=== PATIENT | male | born 1955 | race Caucasian/White ===

== ENCOUNTER 2017-03-10 13:58 | Emergency (ER) | payer OTHER ==
[~2017-03-10] VITALS: Ht 182.9 cm; Wt 104.3 kg
[~2017-03-10 13:58] MED LIST: ACCUPRIL PO; AMBIEN 10 MG TA10 MG PO; ATACAND HCT 161 EACH PO; ATIVAN0.5 MG PO; BACTRIM DS TAB1 EACH PO; CELEXA40 MG PO; CLONAZEPAM 1 MG1 M1 PO; CLONAZEPAM2 MG PO; CLONIDINE0.1 PO; FLEXERIL PO; GLUCOPHAGE500 MG PO; IBUPROFEN 600600 M1 PO; LISINOPRIL2.5 MG PO; MEDROLDOSEPACK PO; NAPROSYN500 MG PO; NEURONTIN 300300 M1 PO; NEXIUM20 MG PO; NEXIUM40 MG PO; NORCO 5-325 TA1 EACH PO; NORFLEX100 MG PO; NORVASC10 MG PO; OXECTA5 MG PO; OXYCODONE HCL 55 MG PO; OXYCODONE HCL10 MG PO; OXYCODONE HCL5 M1 PO; OXYCONTIN10 M1; PERCOCET 10-321 EACH PO; PERCOCET 5-3251 EACH PO; PREDNISONE 20 M20 MG PO; PRINIVIL20 MG PO; PROAIR HFA8.5 GM INH; TRAMADOL 50 MG50 MG PO; VIMOVO 375-201 EACH; ZOFRAN ODT4 MG PO
[2017-03-10 13:59] VITALS: BP 182/129
[2017-03-10] MEDS ORDERED: XANAX 0.5 MG0.5 MG PO (14:30)
== END 2017-03-10 14:50 | disposition left against medical advice (07) ==
LOC: ER 13:58
DX: G89.29 Other chronic pain (principal); M54.5 Low back pain; F32.9 Major depressive disorder, single episode, unspecified; F41.9 Anxiety disorder, unspecified; F17.210 Nicotine dependence, cigarettes, uncomplicated; F10.99 Alcohol use, unspecified with unspecified alcohol-induced disorder; Z86.19 Personal history of other infectious and parasitic diseases

== ENCOUNTER 2017-12-28 22:59 | Emergency (ER) | payer OTHER ==
[~2017-12-28] VITALS: Ht 182.9 cm; Wt 90.7 kg
[~2017-12-28 22:59] MED LIST changes: +XANAX 0.5 MG0.5 MG PO
[2017-12-28 23:32] LABS: URINE BILIRUBIN NEGATIVE (Negative); URINE BLOOD NEGATIVE (Negative); URINE CLARITY CLEAR; URINE COLOR YELLOW; URINE GLUCOSE-RANDOM* NEGATIVE (Negative); URINE KETONES NEGATIVE (Negative); URINE LEUKOCYTES-REFLEX NEGATIVE (Negative); URINE NITRITE-REFLEX NEGATIVE (Negative); URINE PROTEIN (DIPSTICK) 1+ (Negative); URINE UROBILINOGEN 0.2 E.U./dl (0.2-1.0)
[2017-12-28 23:42] LABS: BACTERIA-REFLEX None Seen /HPF (None Seen); CASTS None Seen /LPF (None Seen); CRYSTALS None Seen /LPF (None Seen); MUCUS None Seen strn/LPF (None Seen); SQUAMOUS 0-3 Few /LPF (0-3); URINE RBC None Seen /HPF (0-2); URINE WBC-REFLEX None Seen /HPF (0-5)
[2017-12-29 00:24] VITALS: BP 158/98
== END 2017-12-29 00:43 | disposition left against medical advice (07) ==
LOC: ER 22:59
PROVIDERS: Emergency Medicine
DX: R07.89 Other chest pain (principal); R10.13 Epigastric pain; F32.9 Major depressive disorder, single episode, unspecified; F41.9 Anxiety disorder, unspecified; M54.9 Dorsalgia, unspecified; G89.29 Other chronic pain; F17.210 Nicotine dependence, cigarettes, uncomplicated

== ENCOUNTER 2018-08-31 23:33 | Emergency (ER) | payer OTHER ==
[~2018-08-31] VITALS: Ht 182.9 cm; Wt 88.5 kg
[2018-08-31 23:40] VITALS: BP 166/103
== END 2018-09-01 02:40 | disposition home or self-care (01) ==
LOC: ER 23:33
DX: R07.81 Pleurodynia (principal); F41.9 Anxiety disorder, unspecified; G89.29 Other chronic pain; M54.9 Dorsalgia, unspecified; M48.00 Spinal stenosis, site unspecified

== ENCOUNTER 2020-10-30 17:28 | Emergency (ER) | payer OTHER, MEDICAID ==
[~2020-10-30] VITALS: Ht 180.3 cm; Wt 86.2 kg
[2020-10-30] MEDS ORDERED: BACLOFEN 10MG T10 MG PO (18:16)
[2020-10-30] MEDS ORDERED: ROPINIROLE HCL0.5 MG PO (18:16)
[2020-10-30] MEDS ORDERED: NORCO 10-325 T1 EACH PO (18:23)
[2020-10-30 18:29] VITALS: BP 188/104
== END 2020-10-30 18:49 | disposition home or self-care (01) ==
LOC: ER 17:28
DX: M54.16 Radiculopathy, lumbar region (principal); Z79.899 Other long term (current) drug therapy; Z87.891 Personal history of nicotine dependence; Z88.8 Allergy status to other drugs, medicaments and biological substances

== ENCOUNTER 2020-12-17 18:49 | Emergency (ER) | payer OTHER, MEDICAID ==
[~2020-12-17] VITALS: Ht 180.3 cm; Wt 86.2 kg
--- NOTE | ~2020-12-17 | EMS ---
[facility] [address] [place] [address] EMS Patient Care Report Name: JENA MO Room #: REG DEMARCUS Bergman#: [id number] Admission: 12/17/20 Attend Phys: Discharge: Date of : 59 Report #: [id number] THIS REPORT FOR: //name// Report Transmitted: 12/17/2020 20:16 EMS Care Summary [facility] MED-ACT Incident [id number] @ 12/17/2020 18:19 Incident Location [address] [place] [address] Patient JENA MO Male, 65 Years 1955 Patient Address [address] [place] [address] Patient History Chronic Obstructive Pulmonary Disease (COPD),Hypertension (HTN),Kidney/Renal Failure,Stroke/CVA,Substance Abuse,Parkinson's Disease,End Stage Renal Disease (ESRD),Emphysema,Hepatitis C (Without Hepatic Coma),Anxiety Disorder (Panic Attacks),Depression,Anxiety,Neuropathy,Alcohol Abuse,Chronic Pain,Dialysis,Back Pain (Chronic), Patient Allergies Haldol, Patient Medications Gabapentin, Levetiracetam, Lexapro, Ropinirole, Creon, Metoprolol, Ativan, Neurontin, Alprazolam, Lidocaine, Lisinopril, Trazodone, Buspirone, Amlodipine, Oxycodone, Clonidine, Chief Complaint Malaise Disposition Transported No Lights/[place] Dispatch Reason Sick Person [facility] [address] [place] [address] EMS Patient Care Report Name: JENA MO Room #: REG M.R.#: [id number] Admission: 12/17/20 Attend Phys: Discharge: Date of : 59 Report #: [id number] Transported To [facility] Narrative [id number] dispatched C3 to [facility] for sick person. Upon arrival pt found standing in room, responsive, breathing nonlabored. Pt states that he missed dialysis today and is feeling "uneasy on my feet" and is just not feeling well. Pt states that he always feels this way when he misses dialysis. Pt states that he last went to dialysis 6 days prior. Pt denies drugs or alcohol. Pt denies any other complaints. Pt states that he forgot to take his BP medication this morning but he took it right before calling 911. Pt is able to stand and walk to the cot without assistance. Pt vitals and condition monitored enroute. Pt care transferred room 6 in ER. Initial Vitals @18:34P: 65,R: 16,BP: 214/111,Pain: 0/10,Temp: 97.9F,SpO2: 98, @18:43P: 61,R: 16,BP: 170/89,GCS: 15,SpO2: 96,Revised Trauma: 12, @18:36P: 66,R: 16,BP: 202/109,Pain: 0/10,GCS: 15,SpO2: 100,Revised Trauma: 12, Assessments @18:31MENTAL:Person Oriented,Time Oriented,Place Oriented,Event Oriented,SKIN:HEENT:Head/Face: No Abnormalities,LUNG SOUNDS:ABDOMEN:PELVIS//GI:EXTREMITIES:Left Arm: No Abnormalities,Right Arm: No Abnormalities,Left Leg: No Abnormalities,Right Leg: No Abnormalities,PULSE:NEURO:No Abnormalities, Impression Malaise Procedures @PTA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 PatientResponse: Unchanged 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,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 Patient,Response: Unchanged 18:18,Call Received 18:18,Psap Call 18:19,Dispatched 18:19,En Route 18:27,On Scene 18:30,At Patient [facility] [address] [place] [address] EMS Patient Care Report Name: BRITTNEYJacquelineJENA HARPER Room #: REG [facility]#: [id number] Admission: 12/17/20 Attend Phys: Discharge: Date of : 59 Report #: [id number] 18:34,BP: 214/111 M,PULSE: 65,RR: 16 R,SPO2: 98 Ox,ETCO2: ,BG: ,PAIN: 0,GCS: , 18:34,Depart Scene 18:36,BP: 202/109 M,PULSE: 66,RR: 16 R,SPO2: 100 Ox,ETCO2: ,BG: ,PAIN: 0,GCS: 15, 18:43,BP: 170/89 M,PULSE: 61,RR: 16 R,SPO2: 96 Ox,ETCO2: ,BG: ,PAIN: ,GCS: 15, 18:45,At Destination 18:55,Call Closed Disclaimer v1.1 Copyright 2020 [employer] This EMS Care Summary contains data elements from the applicable legal record (which may be displayed differently). It is designed to provide pertinent information for the following purposes: continuity of care, clinical quality, and state data reporting. The complete legal record is available to ED staff and administrators of the receiving hospital in [employer]'s Patient Tracker. All data is provided "as is."
[~2020-12-17 18:49] MED LIST changes: +BACLOFEN 10MG T10 MG PO; +NORCO 10-325 T1 EACH PO; +ROPINIROLE HCL0.5 MG PO
[2020-12-17 20:08] LABS: ABSOLUTE NEUTROPHILS 4.1 thou/uL (1.4-8.2); BASOPHILS 0.8 % (0.0-2.0); EOSINOPHILS 3.8 % (0.0-3.0); HEMATOCRIT 30.9 % (42.0-52.0); HEMOGLOBIN 10.6 gm/dL (14.0-18.0); LYMPHOCYTES 16.1 % (24.0-44.0); MCH 34.9 pg (26.0-34.0); MCHC 34.4 g/dL (28.0-37.0); MCV 101.5 fL (80.0-100.0); MONOCYTES 5.5 % (1.0-8.0); PLATELET COUNT 164 thou/uL (150-400); POLYS 73.8 % (36.0-66.0); RBC 3.04 mil/uL (4.50-6.00); RDW 16.6 % (10.5-14.5); WBC 5.6 thou/uL (4.0-11.0)
[2020-12-17 20:17] LABS: CALCIUM 8.1 mg/dL (8.5-10.1); CREATININE 8.4 mg/dL (0.7-1.3)
[2020-12-17 20:22] LABS: POTASSIUM 6.1 mmol/L (3.5-5.1)
[2020-12-17 21:54] VITALS: BP 146/80
--- NOTE | 2020-12-18 06:59 | EKG ---
[place] [address] [facility] [employer] [place] [address] ELECTROCARDIOGRAM REPORT Name: JENA MO Room #: [facility]P [facility] [id number] Admission: 12/17/20 Attend Phys: Discharge: 12/17/20 Date of : 59 Report #: [id number] [facility] ED Test Date: 2020-12-17 Test Time: 20:29:53 Pat Name: JENA MO Department: Room: Gender: M Policy Checker: VIDHI : 1955 Requested By: Mita Jerry Order Number: [id number] MD: Graeme Lawrence Measurements Intervals [place] Rate: 51 P: 39 NJ: 213 QRS: 39 QRSD: 109 T: 65 QT: 496 QTc: 457 Interpretive Statements Sinus rhythm Borderline prolonged NJ interval Minimal ST elevation, inferior leads Baseline wander in lead(s) V4 Compared to ECG 10/16/2016 01:44:57 ST (T wave) deviation now present Poor R-wave progression no longer present Electronically Signed On 12-18-2020 6:59:26 CDT by Graeme Lawrence [email or web address] <ELECTRONICALLY SIGNED> By: Graeme Lawrence MD, FAC 12/18/20 0659 28 28 Graeme Lawrence MD, [facility] /EPI
--- NOTE | 2020-12-18 17:12 | EKG ---
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 Primary Care: VIDHI : 1955 Requested By: Mita Jerry Order Number: [id number] MD: Roman Interiano Measurements Intervals [place] Rate: 140 P: 56 DE: 127 QRS: 33 QRSD: 92 T: -2 QT: 294 QTc: 449 Interpretive Statements Sinus tachycardia Nonspecific T wave abnormality Compared to ECG 12/17/2020 20:29:53 Heart rate has increased Electronically Signed On 12-18-2020 17:11:57 CDT by Roman Interiano [email or web address] <ELECTRONICALLY SIGNED> By: Roman Interiano MD, [facility] 12/18/201710 34 Roman Interiano MD, FACC /EPI
== END 2020-12-17 22:03 | disposition home or self-care (01) ==
LOC: ER 18:49
PROVIDERS: Emergency Medicine
DX: E87.5 Hyperkalemia (principal); N18.6 End stage renal disease; Z99.2 Dependence on renal dialysis; Z79.899 Other long term (current) drug therapy; Z87.891 Personal history of nicotine dependence; Z88.8 Allergy status to other drugs, medicaments and biological substances

== ENCOUNTER 2021-03-16 00:36 | Emergency (ER) | payer OTHER, MEDICAID ==
[~2021-03-16] VITALS: Ht 180.3 cm; Wt 86.2 kg
--- NOTE | ~2021-03-16 | EMS ---
[facility] [address] [place] [address] EMS Patient Care Report Name: JENA MO Room #: REG DEMARCUS Bergman#: [id number] Admission: 03/16/21 Attend Phys: Discharge: Date of : 59 Report #: [id number] THIS REPORT FOR: //name// Report Transmitted: 03/16/2021 00:43 EMS Care Summary [facility] MED-ACT Incident [id number] @ 03/16/2021 00:11 Incident Location [address] [place] [address] Patient JENA MO Male, 65 Years 1955 Patient Address [address] [place] [address] Patient History Chronic Obstructive Pulmonary Disease (COPD),Hypertension (HTN),Kidney/Renal Failure,Stroke/CVA,Substance Abuse,Parkinson's Disease,End Stage Renal Disease (ESRD),Emphysema,Hepatitis C (Without Hepatic Coma),Anxiety Disorder (Panic Attacks),Depression,Anxiety,Rheumatic Aortic Stenosis,Neuropathy,Alcohol Abuse,Chronic Pain,Dialysis,Back Pain (Chronic), Patient Allergies Haldol, Patient Medications Allopurinol, Trazodone, Amlodipine, Alprazolam, Buspirone, Clonidine, Gabapentin, Oxycodone, Lexapro, Ropinirole, Neurontin, Levetiracetam, Lidocaine, Creon, Ativan, Metoprolol, Lisinopril, Chief Complaint my foot hurts Disposition Transported No Lights/[place] Dispatch Reason Sick Person Transported To [facility] [address] [place] [address] EMS Patient Care Report Name: JENA MO Room #: REG [facility] [id number] Admission: 03/16/21 Attend Phys: Discharge: Date of : 59 Report #: [id number] [facility] Narrative [id number] dispatched nonemergent to this location for a 65yo male with foot pain. Pt was found seated in a wheel chair in no obvious distress with security at his side. Pt stated he thought this was an ED and had a friend drop him off. Pt stated he scraped his foot on the concrete and its now infected. Pt was able to walk to the unit and climb inside with no assistance. Pt then sat on the cot and was secured per department policy. Pt denied any chest pain, shortness of blood, N/D/V, or any drainage from his infected wound. 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 Patient, 00:09,Call Received 00:09,Psap Call 00:11,Dispatched 00:12,En Route 00:19,On Scene 00:19,At Patient 00:25,Depart Scene 00:25,BP: 192/102 M,PULSE: 85,RR: 16 R,SPO2: 95 Ox,ETCO2: ,BG: ,PAIN: 4,GCS: 15, 00:31,BP: 166/96 M,PULSE: 83,RR: 16 R,SPO2: 97 Ox,ETCO2: ,BG: ,PAIN: ,GCS: 15, 00:33,At Destination 05:56,Call Closed Disclaimer v1.1 Copyright 2020 [employer] [facility] [address] [place] [address] EMS Patient Care Report Name: JENA MO Room #: REG [facility] [id number] Admission: 03/16/21 Attend Phys: Discharge: Date of : 59 Report #: [id number] This EMS Care Summary contains data elements from the applicable legal record (which may be displayed differently). It is designed to provide pertinent information for the following purposes: continuity of care, clinical quality, and state data reporting. The complete legal record is available to ED staff and administrators of the receiving hospital in [employer]'s Patient Tracker. All data is provided "as is."
[2021-03-16 00:38] VITALS: BP 177/92
[2021-03-16 01:30] LABS: ABSOLUTE NEUTROPHILS 3.9 thou/uL (1.4-8.2); BASOPHILS 1.3 % (0.0-2.0); EOSINOPHILS 4.1 % (0.0-3.0); HEMATOCRIT 22.1 % (42.0-52.0); HEMOGLOBIN 7.6 gm/dL (14.0-18.0); LYMPHOCYTES 16.2 % (24.0-44.0); MCH 34.5 pg (26.0-34.0); MCHC 34.3 g/dL (28.0-37.0); MCV 100.4 fL (80.0-100.0); MONOCYTES 9.3 % (1.0-8.0); PLATELET COUNT 255 thou/uL (150-400); POLYS 69.1 % (36.0-66.0); RDW 14.9 % (10.5-14.5); WBC 5.6 thou/uL (4.0-11.0)
[2021-03-16 01:33] LABS: CALCIUM 8.9 mg/dL (8.5-10.1); POTASSIUM 4.4 mmol/L (3.5-5.1)
[2021-03-16 01:39] LABS: ALBUMIN 2.7 g/dL (3.4-5.0); TOTAL BILIRUBIN 0.4 mg/dL (0.2-1.0)
[2021-03-16] MEDS ORDERED: MORPHINE SULFAT15 M3 PO (01:56)
== END 2021-03-16 02:13 | disposition home or self-care (01) ==
LOC: ER 00:36
PROVIDERS: Emergency Medicine
DX: L03.115 Cellulitis of right lower limb (principal); N18.6 End stage renal disease; G89.29 Other chronic pain; F17.210 Nicotine dependence, cigarettes, uncomplicated; Z88.8 Allergy status to other drugs, medicaments and biological substances; Z99.2 Dependence on renal dialysis

== ENCOUNTER 2021-05-12 18:38 | Emergency (ER) | payer OTHER, MEDICAID ==
[~2021-05-12] VITALS: Ht 180.3 cm; Wt 81.7 kg
[~2021-05-12 18:38] MED LIST changes: +MORPHINE SULFAT15 M3 PO
[2021-05-12] MEDS ORDERED: TOPROL XL100 MG PO (19:33)
[2021-05-12 22:27] VITALS: BP 143/80
== END 2021-05-12 22:42 | disposition home or self-care (01) ==
LOC: ER 18:38
DX: G89.29 Other chronic pain (principal); M54.5 Low back pain; N18.6 End stage renal disease; F32.9 Major depressive disorder, single episode, unspecified; F41.9 Anxiety disorder, unspecified; Z79.899 Other long term (current) drug therapy; Z87.891 Personal history of nicotine dependence; Z88.8 Allergy status to other drugs, medicaments and biological substances

== ENCOUNTER 2021-09-04 16:40 | Emergency (ER) | payer OTHER ==
[~2021-09-04] VITALS: Ht 180.3 cm; Wt 86.2 kg
--- NOTE | ~2021-09-04 | EMS ---
[address] [address] EMS Patient Care Report Name: JENA MO Room #: DEP DEMARCUS Bergman#: [id number] Admission: 09/04/21 Attend Phys: Discharge: 09/04/21 Date of : 59 Report #: [id number] THIS REPORT FOR: //name// Report Transmitted: 09/05/2021 13:11 EMS Care Summary [place], [place]/[facility] Incident [id number] @ 09/04/2021 15:57 Incident Location [address] [place] [address] 203 Patient JENA MO Male, 66 Years 1955 Patient Address [id number] [place] [address] Patient History Chronic Obstructive Pulmonary Disease (COPD),Hypertension (HTN),Kidney/Renal Failure,Seizures,Stroke/CVA,Parkinson's Disease,Neuropathy,Dialysis,Back Pain (Chronic), Patient Allergies No known allergies,Haldol, Patient Medications Albuterol, Aspirin, Clonidine, Alprazolam, Amlodipine, Atorvastatin, Gabapentin, Metoprolol, Baclofen, Lisinopril, Buspirone, Chief Complaint left lower quadrant abdominal pain Disposition Transported No Lights/[place] Dispatch Reason Abdominal Pain/Problems Transported To [address] [address] EMS Patient Care Report Name: JENA MO Room #: DEP ER Hyun#: [id number] Admission: 09/04/21 Attend Phys: Discharge: 09/04/21 Date of : 59 Report #: [id number] called on male pt with abdominal pain.upon arrival pt found a and o times 3 and ambulatory,walking towards ambulance with fire crew..pt states he has had llq abdomnial pain for the last three days.he can rub it and it feels better .he denies any trauma to area.pt secured to stretcher.pt states he has also been feeling dizzy and like he was going to pass out .he denied any loc,cp or sob.pt placed on monitor and pulse ox and 12 lead done.iv attempted times 1 without success.bs checked and was 251.pt transported to [facility] er without change in condition.report and care given to rn in triage area and pt moved to wheelchair and left with rn at triage. Initial Vitals @16:21P: 137,CO: 0,SpO2: 97, @16:16P: 43,SpO2: 88, @16:25P: 180,SpO2: 97, @16:19P: 182,CO: 2,SpO2: 97, @16:12P: 45,SpO2: 93, @16:21P: 105,SpO2: 98, @16:10P: 78,R: 16,BP: 122/89,Pain: 4/10,GCS: 15,Glucose: 251,SpO2: 92,Revised Trauma: 12,DE Suspected: false Assessments @16:10MENTAL:No Abnormalities,SKIN:No Abnormalities,HEENT:Head/Face: No Abnormalities,Eyes: No Abnormalities,Neck/Airway: No Abnormalities,LUNG SOUNDS:General: No Abnormalities,Left Upper: No Abnormalities,Right Upper: No Abnormalities,Left Lower: No Abnormalities,Right Lower: No Abnormalities,ABDOMEN:General: No Abnormalities,Left Upper: No Abnormalities,Right Upper: No Abnormalities,Left Lower: No Abnormalities,Right Lower: No Abnormalities,PELVIS//GI:No Abnormalities,EXTREMITIES:Left Arm: No Abnormalities,Right Arm: No Abnormalities,Left Leg: No Abnormalities,Right Leg: No Abnormalities,PULSE:NEURO:No Abnormalities, Impression Abdominal Pain Procedures @16:10 ALS Assessment Response: UnchangedSucceeded @16:21 12-Lead ECG Response: UnchangedSucceeded @16:18 3-Lead ECG Response: UnchangedSucceeded @16:30 General Comments Response: Unchanged @16:23 IV Therapy - Saline Lock 0cc (20 ga) Site: Forearm-Left Response: UnchangedFailed Timeline 15:53,Call Received 15:53,Dispatch Notified [address] [address] EMS Patient Care Report Name: JENA MO Room #: [facility] Madalyn#: [id number] Admission: 09/04/21 Attend Phys: Discharge: 09/04/21 Date of : 59 Report #: [id number] 15:57,Dispatched 15:57,En Route 16:09,On Scene 16:10,At Patient 16:10,ALS Assessment,Response: UnchangedSucceeded, 16:10,BP: 122/89 M,PULSE: 78,RR: 16 R,SPO2: 92 Ox,ETCO2: ,B,PAIN: 4,GCS: 15, 16:12,BP: / M,PULSE: 45,RR: R,SPO2: 93 Ox,ETCO2: ,BG: ,PAIN: ,GCS: , 16:16,BP: / M,PULSE: 43,RR: R,SPO2: 88 Ox,ETCO2: ,BG: ,PAIN: ,GCS: , 16:18,3-Lead ECG,Response: UnchangedSucceeded, 16:19,BP: / M,PULSE: 182,RR: R,SPO2: 97 Ox,ETCO2: ,BG: ,PAIN: ,GCS: , 16:21,BP: / M,PULSE: 137,RR: R,SPO2: 97 Ox,ETCO2: ,BG: ,PAIN: ,GCS: , 16:21,12-Lead ECG,Response: UnchangedSucceeded, 16:21,BP: / M,PULSE: 105,RR: R,SPO2: 98 Ox,ETCO2: ,BG: ,PAIN: ,GCS: , 16:23,IV Therapy - Saline Lock 0cc 20 ga Site: Forearm-Left,Response: UnchangedFailed, 16:25,BP: / M,PULSE: 180,RR: R,SPO2: 97 Ox,ETCO2: ,BG: ,PAIN: ,GCS: , 16:30,General Comments,Response: Unchanged 16:31,Depart Scene 16:35,At Destination 16:57,Call Closed Disclaimer v1.1 Copyright 2020 [employer] This EMS Care Summary contains data elements from the applicable legal record (which may be displayed differently). It is designed to provide pertinent information for the following purposes: continuity of care, clinical quality, and state data reporting. The complete legal record is available to ED staff and administrators of the receiving hospital in [employer]'s Patient Tracker. All data is provided "as is."
--- NOTE | ~2021-09-04 | EMS ---
[address] [address] EMS Patient Care Report Name: JENA MO Room #: DEP DEMARCUS Bergman#: [id number] Admission: 09/04/21 Attend Phys: Discharge: 09/04/21 Date of : 59 Report #: [id number] THIS REPORT FOR: //name// Report Transmitted: 09/05/2021 09:49 EMS Care Summary [place], [place]/[facility] Incident [id number] @ 09/04/2021 15:57 Incident Location [address] [place] [address] 203 Patient JENA MO Male, 66 Years 1955 Patient Address [address] [place] [address] Patient History Chronic Obstructive Pulmonary Disease (COPD),Hypertension (HTN),Kidney/Renal Failure,Seizures,Stroke/CVA,Parkinson's Disease,Neuropathy,Dialysis,Back Pain (Chronic), Patient Allergies No known allergies,Haldol, Patient Medications Albuterol, Aspirin, Clonidine, Alprazolam, Amlodipine, Atorvastatin, Gabapentin, Metoprolol, Baclofen, Lisinopril, Buspirone, Chief Complaint left lower quadrant abdominal pain Disposition Transported No Lights/[place] Dispatch Reason Abdominal Pain/Problems Transported To [address] [address] EMS Patient Care Report Name: JENA MO Room #: DEP ER Hyun#: [id number] Admission: 09/04/21 Attend Phys: Discharge: 09/04/21 Date of : 59 Report #: [id number] called on male pt with abdominal pain.upon arrival pt found a and o times 3 and ambulatory,walking towards ambulance with fire crew..pt states he has had llq abdomnial pain for the last three days.he can rub it and it feels better .he denies any trauma to area.pt secured to stretcher.pt states he has also been feeling dizzy and like he was going to pass out .he denied any loc,cp or sob.pt placed on monitor and pulse ox and 12 lead done.iv attempted times 1 without success.bs checked and was 251.pt transported to [facility] er without change in condition.report and care given to rn in triage area and pt moved to wheelchair and left with rn at triage. Initial Vitals @16:21P: 137,CO: 0,SpO2: 97, @16:16P: 43,SpO2: 88, @16:25P: 180,SpO2: 97, @16:19P: 182,CO: 2,SpO2: 97, @16:12P: 45,SpO2: 93, @16:21P: 105,SpO2: 98, @16:10P: 78,R: 16,BP: 122/89,Pain: 4/10,GCS: 15,Glucose: 251,SpO2: 92,Revised Trauma: 12,PR Suspected: false Assessments @16:10MENTAL:No Abnormalities,SKIN:No Abnormalities,HEENT:Head/Face: No Abnormalities,Eyes: No Abnormalities,Neck/Airway: No Abnormalities,LUNG SOUNDS:General: No Abnormalities,Left Upper: No Abnormalities,Right Upper: No Abnormalities,Left Lower: No Abnormalities,Right Lower: No Abnormalities,ABDOMEN:General: No Abnormalities,Left Upper: No Abnormalities,Right Upper: No Abnormalities,Left Lower: No Abnormalities,Right Lower: No Abnormalities,PELVIS//GI:No Abnormalities,EXTREMITIES:Left Arm: No Abnormalities,Right Arm: No Abnormalities,Left Leg: No Abnormalities,Right Leg: No Abnormalities,PULSE:NEURO:No Abnormalities, Impression Abdominal Pain Procedures @16:10 ALS Assessment Response: UnchangedSucceeded @16:21 12-Lead ECG Response: UnchangedSucceeded @16:18 3-Lead ECG Response: UnchangedSucceeded @16:30 General Comments Response: Unchanged @16:23 IV Therapy - Saline Lock 0cc (20 ga) Site: Forearm-Left Response: UnchangedFailed Timeline 15:53,Call Received 15:53,Dispatch Notified [address] [address] EMS Patient Care Report Name: JENA MO Room #: [facility] Madalyn#: [id number] Admission: 09/04/21 Attend Phys: Discharge: 09/04/21 Date of : 59 Report #: [id number] 15:57,Dispatched 15:57,En Route 16:09,On Scene 16:10,At Patient 16:10,ALS Assessment,Response: UnchangedSucceeded, 16:10,BP: 122/89 M,PULSE: 78,RR: 16 R,SPO2: 92 Ox,ETCO2: ,B,PAIN: 4,GCS: 15, 16:12,BP: / M,PULSE: 45,RR: R,SPO2: 93 Ox,ETCO2: ,BG: ,PAIN: ,GCS: , 16:16,BP: / M,PULSE: 43,RR: R,SPO2: 88 Ox,ETCO2: ,BG: ,PAIN: ,GCS: , 16:18,3-Lead ECG,Response: UnchangedSucceeded, 16:19,BP: / M,PULSE: 182,RR: R,SPO2: 97 Ox,ETCO2: ,BG: ,PAIN: ,GCS: , 16:21,BP: / M,PULSE: 137,RR: R,SPO2: 97 Ox,ETCO2: ,BG: ,PAIN: ,GCS: , 16:21,12-Lead ECG,Response: UnchangedSucceeded, 16:21,BP: / M,PULSE: 105,RR: R,SPO2: 98 Ox,ETCO2: ,BG: ,PAIN: ,GCS: , 16:23,IV Therapy - Saline Lock 0cc 20 ga Site: Forearm-Left,Response: UnchangedFailed, 16:25,BP: / M,PULSE: 180,RR: R,SPO2: 97 Ox,ETCO2: ,BG: ,PAIN: ,GCS: , 16:30,General Comments,Response: Unchanged 16:31,Depart Scene 16:35,At Destination 16:57,Call Closed Disclaimer v1.1 Copyright 2020 [employer] This EMS Care Summary contains data elements from the applicable legal record (which may be displayed differently). It is designed to provide pertinent information for the following purposes: continuity of care, clinical quality, and state data reporting. The complete legal record is available to ED staff and administrators of the receiving hospital in [employer]'s Patient Tracker. All data is provided "as is."
[~2021-09-04 16:40] MED LIST changes: +TOPROL XL100 MG PO
[2021-09-04 16:46] VITALS: BP 96/55
[2021-09-04 17:38] LABS: ABSOLUTE NEUTROPHILS 7.9 thou/uL (1.4-8.2); BASOPHILS 0.8 % (0.0-2.0); EOSINOPHILS 6.6 % (0.0-3.0); HEMATOCRIT 36.7 % (42.0-52.0); HEMOGLOBIN 12.2 gm/dL (14.0-18.0); LYMPHOCYTES 12.8 % (24.0-44.0); MCH 31.8 pg (26.0-34.0); MCHC 33.2 g/dL (28.0-37.0); MCV 95.9 fL (80.0-100.0); MONOCYTES 5.9 % (1.0-8.0); PLATELET COUNT 249 thou/uL (150-400); POLYS 73.9 % (36.0-66.0); RBC 3.83 mil/uL (4.50-6.00); RDW 14.8 % (10.5-14.5); WBC 10.7 thou/uL (4.0-11.0)
[2021-09-04 17:47] LABS: CALCIUM 9.1 mg/dL (8.5-10.1); CREATININE 7.3 mg/dL (0.7-1.3); POTASSIUM 4.9 mmol/L (3.5-5.1)
[2021-09-04 17:58] LABS: ALBUMIN 4.1 g/dL (3.4-5.0); TOTAL BILIRUBIN 0.3 mg/dL (0.2-1.0); TOTAL PROTEIN 8.2 g/dL (6.4-8.2)
[2021-09-04] MEDS ORDERED: AUGMENTIN 500-1 EACH PO (18:43)
--- NOTE | 2021-09-06 11:07 | EKG ---
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 : 1955 Requested By: Miracle Mae Order Number: [id number] MD: Roman Interiano Measurements Intervals [place] Rate: 92 P: 48 NM: 167 QRS: 44 QRSD: 99 T: 68 QT: 380 QTc: 471 Interpretive Statements Sinus rhythm Borderline ST elevation, anterolateral leads Compared to ECG 12/17/2020 20:35:51 ST (T wave) deviation now present Sinus tachycardia no longer present Electronically Signed On 09-06-2021 11:06:37 BUS TROLLEY AND TAXI INSTRUCTOR by Roman Interiano [email or web address] <ELECTRONICALLY SIGNED> By: Roman Interiano MD, [facility] 09/06/21 1106 D: 12/1751 51 Roman Interiano MD, FACC /EPI
== END 2021-09-04 18:57 | disposition home or self-care (01) ==
LOC: ER 16:40
PROVIDERS: Nurse Practitioner Family
DX: K52.9 Noninfective gastroenteritis and colitis, unspecified (principal); R10.10 Upper abdominal pain, unspecified; B19.20 Unspecified viral hepatitis C without hepatic coma; F32.9 Major depressive disorder, single episode, unspecified; F41.9 Anxiety disorder, unspecified; K21.9 Gastro-esophageal reflux disease without esophagitis; N18.6 End stage renal disease; Z98.890 Other specified postprocedural states; Z79.51 Long term (current) use of inhaled steroids; Z79.899 Other long term (current) drug therapy; Z88.8 Allergy status to other drugs, medicaments and biological substances; Z87.891 Personal history of nicotine dependence

== ENCOUNTER 2021-09-05 18:10 | Emergency (ER) | payer OTHER ==
[~2021-09-05] VITALS: Ht 180.3 cm; Wt 86.2 kg
[~2021-09-05 18:10] MED LIST changes: +AUGMENTIN 500-1 EACH PO
[2021-09-06 02:18] LABS: ABSOLUTE NEUTROPHILS 5.1 thou/uL (1.4-8.2); EOSINOPHILS 6.9 % (0.0-3.0); HEMATOCRIT 33.5 % (42.0-52.0); LYMPHOCYTES 18.8 % (24.0-44.0); MCH 31.6 pg (26.0-34.0); MCHC 32.8 g/dL (28.0-37.0); MCV 96.3 fL (80.0-100.0); PLATELET COUNT 231 thou/uL (150-400); POLYS 68.3 % (36.0-66.0); RBC 3.48 mil/uL (4.50-6.00); RDW 14.9 % (10.5-14.5); WBC 7.5 thou/uL (4.0-11.0)
[2021-09-06 02:35] LABS: CALCIUM 8.4 mg/dL (8.5-10.1); POTASSIUM 4.8 mmol/L (3.5-5.1)
[2021-09-06 02:38] LABS: ALBUMIN 3.9 g/dL (3.4-5.0); TOTAL BILIRUBIN 0.3 mg/dL (0.2-1.0); TOTAL PROTEIN 7.6 g/dL (6.4-8.2)
[2021-09-06 04:18] VITALS: BP 158/89
== END 2021-09-06 03:50 | disposition home or self-care (01) ==
LOC: ER 18:10
PROVIDERS: Emergency Medicine
DX: R10.13 Epigastric pain (principal); B19.20 Unspecified viral hepatitis C without hepatic coma; F32.9 Major depressive disorder, single episode, unspecified; N18.6 End stage renal disease; Z98.890 Other specified postprocedural states; Z79.51 Long term (current) use of inhaled steroids; Z79.899 Other long term (current) drug therapy; Z79.891 Long term (current) use of opiate analgesic; Z88.8 Allergy status to other drugs, medicaments and biological substances; Z87.891 Personal history of nicotine dependence

== ENCOUNTER 2021-09-13 10:11 | Emergency (ER) | payer OTHER ==
[~2021-09-13] VITALS: Ht 180.3 cm; Wt 86.2 kg
--- NOTE | ~2021-09-13 | EMS ---
[address] [address] EMS Patient Care Report Name: JENA MO Room #: DEP DEMARCUS Bergman#: [id number] Admission: 09/13/21 Attend Phys: Discharge: 09/13/21 Date of : 59 Report #: [id number] THIS REPORT FOR: //name// Report Transmitted: 09/18/2021 09:29 EMS Care Summary [place], [place]/[facility] Incident [id number] @ 09/13/2021 09:29 Incident Location [address] Patient JENA MO Male, 66 Years 1955 Patient Address [id number] [place] [address] [address] [place] [address] Patient History Chronic Obstructive Pulmonary Disease (COPD),Hypertension (HTN),Kidney/Renal Failure,Seizures,Stroke/CVA,Parkinson's Disease,Neuropathy,Dialysis,Back Pain (Chronic), Patient Allergies No known allergies,Haldol, Patient Medications Metoprolol, Alprazolam, Lisinopril, Atorvastatin, Gabapentin, Aspirin, Clonidine, Amlodipine, Buspirone, Baclofen, Albuterol, Chief Complaint FALL Disposition Transported No Lights/[place] Dispatch Reason Falls Transported To [address] [address] EMS Patient Care Report Name: JENA MO Room #: DEP ER Hyun#: [id number] Admission: 09/13/21 Attend Phys: Discharge: 09/13/21 Date of : 59 Report #: [id number] M43 WAS DISPATCHED TO A CARE HOME ON A FALL. ON ARRIVAL PT IS FOUND SITTING IN AN ARMCHAIR IN HIS ROOM. PT IS ALERT AND ORIENTED GCS OF 15 AND TELLS EMS THAT HE LOST HIS BALANCE AND FELL HURTING HIS ELBOW. PT HAS A 1 INCH LACERATION TO HIS LEFT ELBOW. EMS BANDAGES THE ELBOW WHICH STOPS THE BLEEDING. PT REQUESTS TRANSPORT TO [facility] FOR EVALUATION AND TREATMENT. PT S ABLE TO STAND AND WALK TO [facility] WHERE HE REMAINS UNTIL STAND AND SIT IN WHEELCHAIR IN ER. VITALS MONITORED EN ROUTE WITH NO CHANGES IN PT CONDITION. Initial Vitals @10:05P: 87,BP: 156/83, @09:56P: 78,R: 18,BP: 158/84,Pain: 6/10,GCS: 15,SpO2: 98,Revised Trauma: 12, Assessments @09:54MENTAL:Time Oriented,Event Oriented,Person Oriented,Place Oriented,SKIN:HEENT:Head/Face: No Abnormalities,Neck/Airway: No Abnormalities,LUNG SOUNDS:General: No Abnormalities,ABDOMEN:General: No Abnormalities,PELVIS//GI:No Abnormalities,EXTREMITIES:Left Arm: Other,Right Arm: No Abnormalities,Left Leg: No Abnormalities,Right Leg: No Abnormalities,PULSE:NEURO:No Abnormalities, Impression Injury of Elbow Procedures @09:54 ALS Assessment Response: UnchangedSucceeded Timeline 09:21,Call Received :,Dispatch Notified 09:29,Dispatched 09:30,En Route 09:50,On Scene 09:54,At Patient 09:54,ALS Assessment,Response: UnchangedSucceeded, 09:56,BP: 158/84 M,PULSE: 78,RR: 18 R,SPO2: 98 Ox,ETCO2: ,BG: ,PAIN: 6,GCS: 15, 10:02,Depart Scene 10:05,BP: 156/83 M,PULSE: 87,RR: R,SPO2: Ox,ETCO2: ,BG: ,PAIN: ,GCS: , 10:21,At Destination 10:26,Call Closed Disclaimer v1.1 Copyright 2021 [employer] This EMS Care Summary contains data elements from the applicable legal record (which may be displayed differently). It is designed to provide pertinent information for the following purposes: continuity of care, clinical quality, [address] [address] EMS Patient Care Report Name: JENA MO Room #: DEP DEMARCUS Bergman#: [id number] Admission: 09/13/21 Attend Phys: Discharge: 09/13/21 Date of : 59 Report #: [id number] and state data reporting. The complete legal record is available to ED staff and administrators of the receiving hospital in [employer]'s Patient Tracker. All data is provided "as is."
[~2021-09-13 10:11] MED LIST changes: -ACID CONTROLLER20 MG PO; -CEPHALEXIN500 MG PO; -COLACE100 MG PO; -HYDROCODON-ACE1 EAC7 PO; -LEVAQUIN 500 M500 MG PO; -METRONIDAZOLE500 M4 PO; -NEURONTIN 300M300 M2 PO
[2021-09-13 11:48] LABS: ABSOLUTE NEUTROPHILS 4.9 thou/uL (1.4-8.2); BASOPHILS 0.7 % (0.0-2.0); EOSINOPHILS 5.9 % (0.0-3.0); HEMATOCRIT 29.6 % (42.0-52.0); HEMOGLOBIN 9.8 gm/dL (14.0-18.0); LYMPHOCYTES 12.5 % (24.0-44.0); MCH 32.1 pg (26.0-34.0); MCV 97.2 fL (80.0-100.0); MONOCYTES 7.1 % (1.0-8.0); PLATELET COUNT 235 thou/uL (150-400); POLYS 73.8 % (36.0-66.0); RBC 3.04 mil/uL (4.50-6.00); RDW 14.7 % (10.5-14.5); WBC 6.7 thou/uL (4.0-11.0)
[2021-09-13 12:26] LABS: CALCIUM 8.5 mg/dL (8.5-10.1); CREATININE 8.9 mg/dL (0.7-1.3); POTASSIUM 5.3 mmol/L (3.5-5.1)
[2021-09-13 12:36] LABS: ALBUMIN 3.7 g/dL (3.4-5.0); TOTAL BILIRUBIN 0.2 mg/dL (0.2-1.0); TOTAL PROTEIN 7.5 g/dL (6.4-8.2)
--- NOTE | 2021-09-13 14:21 | EKG ---
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 : 1955 Requested By: Bubba Etienne Order Number: [id number] MD: Graeme Lawrence Measurements Intervals [place] Rate: 75 P: 48 DC: 188 QRS: 28 QRSD: 99 T: 62 QT: 401 QTc: 448 Interpretive Statements Sinus rhythm Baseline wander in lead(s) V4 Compared to ECG 09/04/2021 17:52:50 ST (T wave) deviation no longer present Electronically Signed On 09-13-2021 14:21:01 FLOOR TILING PROFESSIONAL by Graeme Lawrence [email or web address] <ELECTRONICALLY SIGNED> By: Graeme Lawrence MD, [facility] 09/13/21 1421 1043 1043 Graeme Lawrence MD, FACC /EPI
[2021-09-13] MEDS ORDERED: CEPHALEXIN500 MG PO (14:43)
[2021-09-13 14:50] VITALS: BP 153/90
== END 2021-09-13 14:50 | disposition home or self-care (01) ==
LOC: ER 10:11
PROVIDERS: Emergency Medicine
DX: S51.012A Laceration without foreign body of left elbow, initial encounter (principal); M25.522 Pain in left elbow; B19.20 Unspecified viral hepatitis C without hepatic coma; I10 Essential (primary) hypertension; I77.6 Arteritis, unspecified; F32.9 Major depressive disorder, single episode, unspecified; F41.9 Anxiety disorder, unspecified; N18.6 End stage renal disease; G20 Parkinson's disease; Z98.890 Other specified postprocedural states; Z79.51 Long term (current) use of inhaled steroids; Z79.891 Long term (current) use of opiate analgesic; Z79.899 Other long term (current) drug therapy; Z88.8 Allergy status to other drugs, medicaments and biological substances; Z87.891 Personal history of nicotine dependence; W18.30XA Fall on same level, unspecified, initial encounter; Y93.89 Activity, other specified; Y92.89 Other specified places as the place of occurrence of the external cause; Y99.8 Other external cause status

== ENCOUNTER → 2021-09-13 | Emergency (ER) | payer OTHER ==
[~2021-09-13] MED LIST changes: +ACID CONTROLLER20 MG PO; +CEPHALEXIN500 MG PO; +COLACE100 MG PO; +HYDROCODON-ACE1 EAC7 PO; +LEVAQUIN 500 M500 MG PO; +METRONIDAZOLE500 M4 PO; +NEURONTIN 300M300 M2 PO
[2021-09-13 15:27] VITALS: BP 166/103
== END ==
LOC: ER 15:26
DX: M54.50 Low back pain, unspecified (principal); B19.20 Unspecified viral hepatitis C without hepatic coma; K21.9 Gastro-esophageal reflux disease without esophagitis; F32.9 Major depressive disorder, single episode, unspecified; F41.9 Anxiety disorder, unspecified; G20 Parkinson's disease; N18.6 End stage renal disease; Z98.890 Other specified postprocedural states; Z79.51 Long term (current) use of inhaled steroids; Z79.899 Other long term (current) drug therapy; Z79.891 Long term (current) use of opiate analgesic; Z88.8 Allergy status to other drugs, medicaments and biological substances; Z87.891 Personal history of nicotine dependence

== ENCOUNTER 2021-09-14 22:07 | Emergency (ER) | payer OTHER ==
[~2021-09-14] VITALS: Ht 180.3 cm; Wt 86.2 kg
--- NOTE | ~2021-09-14 | EMS ---
[address] [address] EMS Patient Care Report Name: JENA MO Room #: DEP DEMARCUS Bergman#: [id number] Admission: 09/14/21 Attend Phys: Discharge: 09/15/21 Date of : 59 Report #: [id number] THIS REPORT FOR: //name// Report Transmitted: 09/16/2021 09:20 EMS Care Summary [place], [place]/[facility] Incident [id number] @ 09/14/2021 21:36 Incident Location [address] Patient JENA MO Male, 66 Years 1955 Patient Address [address] [place] [address] [address] [place] [address] Patient History Chronic Obstructive Pulmonary Disease (COPD),Hypertension (HTN),Kidney/Renal Failure,Seizures,Stroke/CVA,Parkinson's Disease,Neuropathy,Dialysis,Back Pain (Chronic), Patient Allergies Haldol, Patient Medications Lisinopril, Baclofen, Atorvastatin, Buspirone, Gabapentin, Alprazolam, Aspirin, Albuterol, Clonidine, Amlodipine, Metoprolol, Chief Complaint CONSTIPATION Disposition Transported No Lights/[place] Dispatch Reason Sick Person Transported To [facility] [address] [place] [address] EMS Patient Care Report Name: JENA MO Room #: DEP ER Madalyn#: [id number] Admission: 09/14/21 Attend Phys: Discharge: 09/15/21 Date of : 59 Report #: [id number] [id number] DISPATCHED TO A SICK AT ADDRESS STATED ABOVE. M537 ARRIVED ON SCENE TO FIND PT, A 66YO MALE SITTING UPRIGHT IN A WHEELCHAIR WITH PUMPER CREWS ALREADY ON SCENE. UPON INITIAL CONTACT, PT IS SELF MAINTAINING OWN ABC???S, ALERT AND ORIENTED, AND NO OBVIOUS INJURIES NOTED. PT STATES HE HAS BEEN HAVING DIFFICULTY URINATING OR MAKING A BM FOR THE PAST DAY AND WOULD LIKE TO GO TO THE HOSPITAL TO GET IT CHECKED OUT. UPON PRIMARY ASSESSMENT ON SCENE, PT SKIN IS PWD AND PUPILS ARE ROUND EQUAL AND REACTIVE. PT HAS STRONG RADIAL PULSES AND GOOD CAPILLARY REFILL. PT IS ABLE TO SPEAK CLEARLY AND MOVE PURPOSEFULLY. PT LUNG SOUNDS ARE CLEAR AND EQUAL BILATERALLY AND ABDOMEN IS SOFT AND NONTENDER IN ALL QUADRANTS EXCEPT SOME SLIGHT TENDERNESS IN THE LEFT UPPER QUADRANT. PMS IS INTACT IN ALL EXTREMITIES. PT DENIES ANY SHORTNESS OF BREATH, CHEST PAIN, OR ANY OTHER PAIN OR DISCOMFORT. PT ALSO DENIES ANY NAUSEA, VOMITING, OR DIARRHEA. PT WAS PLACED ON COT IN A POSITION OF COMFORT AND SECURED WITH ALL AVAILABLE STRAPS. PT WAS THEN LOADED INTO AMBULANCE VIA STRETCHER AND VITALS ASSESSED ON SCENE. VITALS REASSESSED ENROUTE WHILE CONTINUOUSLY MONITORING ABC???S. PT TRANSPORTED TO HOSPITAL WITHOUT INCIDENT. UPON ARRIVAL TO ED, PT WAS BROUGHT INSIDE TO ER VIA STRETCHER AND TRANSFERRED TO WHEELCHAIR. VERBAL REPORT WAS GIVEN TO RECEIVING RN AND PT CARE TRANSFERRED. Initial Vitals @22:02P: 85,BP: 119/73,SpO2: 97, @22:00P: 81,R: 18,BP: 116/63,Pain: 4/10,GCS: 15,Glucose: 105,SpO2: 98,Revised Trauma: 12, Assessments @21:58MENTAL:Person Oriented,Time Oriented,Place Oriented,Event Oriented,SKIN:HEENT:Eyes: Left Pupil: 4-mm,Eyes: Right Pupil: 4-mm,Head/Face: No Abnormalities,Neck/Airway: No Abnormalities,LUNG SOUNDS:Left Upper: Tenderness,ABDOMEN:Left Upper: Tenderness,PELVIS//GI:No Abnormalities,EXTREMITIES:Capillary Refill: Right Upper: < 2 Sec,Left Arm: No Abnormalities,Right Arm: No Abnormalities,Left Leg: No Abnormalities,Right Leg: No Abnormalities,PULSE:Radial: 2+ Normal,NEURO:Slurred Speech,Abnormal Gait, Impression Abdominal Pain [address] [address] EMS Patient Care Report Name: JENA MO Room #: DEP DEMARCUS Bergman#: [id number] Admission: 09/14/21 Attend Phys: Discharge: 09/15/21 Date of : 59 Report #: [id number] Procedures @21:59 Stretcher Response: Unchanged @21:58 ALS Assessment Response: UnchangedSucceeded Timeline 21:33,Call Received 21:33,Dispatch Notified 21:36,Dispatched 21:36,En Route 21:57,On Scene 21:58,At Patient 21:58,ALS Assessment,Response: UnchangedSucceeded, 21:59,Stretcher,Response: Unchanged 22:00,Depart Scene 22:00,BP: 116/63 M,PULSE: 81,RR: 18 R,SPO2: 98 Ox,ETCO2: ,B,PAIN: 4,GCS: 15, 22:02,BP: 119/73 M,PULSE: 85,RR: R,SPO2: 97 Ox,ETCO2: ,BG: ,PAIN: ,GCS: , 22:03,At Destination 22:23,Call Closed Disclaimer v1.1 Copyright 2021 [employer] This EMS Care Summary contains data elements from the applicable legal record (which may be displayed differently). It is designed to provide pertinent information for the following purposes: continuity of care, clinical quality, and state data reporting. The complete legal record is available to ED staff and administrators of the receiving hospital in [email or web address]'s Patient Tracker. All data is provided "as is."
--- NOTE | ~2021-09-14 | EMS ---
[facility] [address] [place] [address] EMS Patient Care Report Name: JENA MO Room #: REG DEMARCUS Bergman#: [id number] Admission: 09/14/21 Attend Phys: Discharge: Date of : 59 Report #: [id number] THIS REPORT FOR: //name// Report Transmitted: 09/14/2021 21:27 EMS Care Summary [place], [place]/[facility] Incident [id number] @ 09/14/2021 21:36 Incident Location [address] Patient JENA MO Male, 66 Years 1955 Patient Address [address] [place] [address] Patient History Chronic Obstructive Pulmonary Disease (COPD),Hypertension (HTN),Kidney/Renal Failure,Seizures,Stroke/CVA,Parkinson's Disease,Neuropathy,Dialysis,Back Pain (Chronic), Patient Allergies Haldol, Patient Medications Lisinopril, Baclofen, Atorvastatin, Buspirone, Gabapentin, Alprazolam, Aspirin, Albuterol, Clonidine, Amlodipine, Metoprolol, Chief Complaint CONSTIPATION Disposition Transported No Lights/[place] Dispatch Reason Sick Person Transported To [facility] [address] [place] [address] EMS Patient Care Report Name: JENA MO Room #: REG DEMARCUS Bergman#: [id number] Admission: 09/14/21 Attend Phys: Discharge: Date of : 59 Report #: [id number] M537 DISPATCHED TO A SICK AT ADDRESS STATED ABOVE. M537 ARRIVED ON SCENE TO FIND PT, A 66YO MALE SITTING UPRIGHT IN A WHEELCHAIR WITH PUMPER CREWS ALREADY ON SCENE. UPON INITIAL CONTACT, PT IS SELF MAINTAINING OWN ABC???S, ALERT AND ORIENTED, AND NO OBVIOUS INJURIES NOTED. PT STATES HE HAS BEEN HAVING DIFFICULTY URINATING OR MAKING A BM FOR THE PAST DAY AND WOULD LIKE TO GO TO THE HOSPITAL TO GET IT CHECKED OUT. UPON PRIMARY ASSESSMENT ON SCENE, PT SKIN IS PWD AND PUPILS ARE ROUND EQUAL AND REACTIVE. PT HAS STRONG RADIAL PULSES AND GOOD CAPILLARY REFILL. PT IS ABLE TO SPEAK CLEARLY AND MOVE PURPOSEFULLY. PT LUNG SOUNDS ARE CLEAR AND EQUAL BILATERALLY AND ABDOMEN IS SOFT AND NONTENDER IN ALL QUADRANTS EXCEPT SOME SLIGHT TENDERNESS IN THE LEFT UPPER QUADRANT. PMS IS INTACT IN ALL EXTREMITIES. PT DENIES ANY SHORTNESS OF BREATH, CHEST PAIN, OR ANY OTHER PAIN OR DISCOMFORT. PT ALSO DENIES ANY NAUSEA, VOMITING, OR DIARRHEA. PT WAS PLACED ON COT IN A POSITION OF COMFORT AND SECURED WITH ALL AVAILABLE STRAPS. PT WAS THEN LOADED INTO AMBULANCE VIA STRETCHER AND VITALS ASSESSED ON SCENE. VITALS REASSESSED ENROUTE WHILE CONTINUOUSLY MONITORING ABC???S. PT TRANSPORTED TO HOSPITAL WITHOUT INCIDENT. UPON ARRIVAL TO ED, PT WAS BROUGHT INSIDE TO ER VIA STRETCHER AND TRANSFERRED TO WHEELCHAIR. VERBAL REPORT WAS GIVEN TO RECEIVING RN AND PT CARE TRANSFERRED. Initial Vitals @22:02P: 85,BP: 119/73,SpO2: 97, @22:00P: 81,R: 18,BP: 116/63,Pain: 4/10,GCS: 15,Glucose: 105,SpO2: 98,Revised Trauma: 12, Assessments @21:58MENTAL:Person Oriented,Time Oriented,Place Oriented,Event Oriented,SKIN:HEENT:Eyes: Left Pupil: 4-mm,Eyes: Right Pupil: 4-mm,Head/Face: No Abnormalities,Neck/Airway: No Abnormalities,LUNG SOUNDS:Left Upper: Tenderness,ABDOMEN:Left Upper: Tenderness,PELVIS//GI:No Abnormalities,EXTREMITIES:Capillary Refill: Right Upper: < 2 Sec,Left Arm: No Abnormalities,Right Arm: No Abnormalities,Left Leg: No Abnormalities,Right Leg: No Abnormalities,PULSE:Radial: 2+ Normal,NEURO:Slurred Speech,Abnormal Gait, Impression Abdominal Pain [address] [address] EMS Patient Care Report Name: JENA MO Room #: REG DEMARCUS Bergman#: [id number] Admission: 09/14/21 Attend Phys: Discharge: Date of : 59 Report #: [id number] Procedures @21:59 Stretcher Response: Unchanged @21:58 ALS Assessment Response: UnchangedSucceeded Timeline 21:33,Call Received 21:33,Dispatch Notified 21:36,Dispatched 21:36,En Route 21:57,On Scene 21:58,At Patient 21:58,ALS Assessment,Response: UnchangedSucceeded, :59,Stretcher,Response: Unchanged 22:00,Depart Scene 22:00,BP: 116/63 M,PULSE: 81,RR: 18 R,SPO2: 98 Ox,ETCO2: ,B,PAIN: 4,GCS: 15, 22:02,BP: 119/73 M,PULSE: 85,RR: R,SPO2: 97 Ox,ETCO2: ,BG: ,PAIN: ,GCS: , 22:03,At Destination 22:23,Call Closed Disclaimer v1.1 Copyright 2021 [employer] This EMS Care Summary contains data elements from the applicable legal record (which may be displayed differently). It is designed to provide pertinent information for the following purposes: continuity of care, clinical quality, and state data reporting. The complete legal record is available to ED staff and administrators of the receiving hospital in [employer]'s Patient Tracker. All data is provided "as is."
[~2021-09-14 22:07] MED LIST changes: +CEPHALEXIN500 MG PO
[2021-09-15 00:12] LABS: ABSOLUTE NEUTROPHILS 9.9 thou/uL (1.4-8.2); BASOPHILS 0.4 % (0.0-2.0); EOSINOPHILS 2.1 % (0.0-3.0); HEMATOCRIT 32.6 % (42.0-52.0); HEMOGLOBIN 10.6 gm/dL (14.0-18.0); LYMPHOCYTES 5.8 % (24.0-44.0); MCH 32.6 pg (26.0-34.0); MCHC 32.5 g/dL (28.0-37.0); MCV 100.3 fL (80.0-100.0); MONOCYTES 4.7 % (1.0-8.0); PLATELET COUNT 225 thou/uL (150-400); RBC 3.25 mil/uL (4.50-6.00); RDW 15.7 % (10.5-14.5); WBC 11.4 thou/uL (4.0-11.0)
[2021-09-15 00:26] LABS: CALCIUM 8.5 mg/dL (8.5-10.1); CREATININE 6.6 mg/dL (0.7-1.3); POTASSIUM 5.1 mmol/L (3.5-5.1)
[2021-09-15 00:32] LABS: TOTAL BILIRUBIN 0.3 mg/dL (0.2-1.0); TOTAL PROTEIN 8.1 g/dL (6.4-8.2)
[2021-09-15] MEDS ORDERED: COLACE100 MG PO (01:55)
[2021-09-15] MEDS ORDERED: METRONIDAZOLE500 M4 PO (01:55)
[2021-09-15] MEDS ORDERED: LEVAQUIN 500 M500 MG PO (01:55)
[2021-09-15 02:11] VITALS: BP 140/78
== END 2021-09-15 02:07 | disposition home or self-care (01) ==
LOC: ER 22:07
PROVIDERS: Emergency Medicine
DX: K59.00 Constipation, unspecified (principal); R10.13 Epigastric pain; K62.89 Other specified diseases of anus and rectum; B19.20 Unspecified viral hepatitis C without hepatic coma; F32.9 Major depressive disorder, single episode, unspecified; F41.9 Anxiety disorder, unspecified; N18.6 End stage renal disease; G20 Parkinson's disease; Z98.890 Other specified postprocedural states; Z99.2 Dependence on renal dialysis; Z79.51 Long term (current) use of inhaled steroids; Z79.891 Long term (current) use of opiate analgesic; Z79.899 Other long term (current) drug therapy; Z88.8 Allergy status to other drugs, medicaments and biological substances; Z87.891 Personal history of nicotine dependence

== ENCOUNTER 2021-09-19 19:13 | Inpatient (IN) | payer OTHER ==
[~2021-09-19] VITALS: Ht 180.3 cm; Wt 86.2 kg
[~2021-09-19 19:13] MED LIST changes: +COLACE100 MG PO; +LEVAQUIN 500 M500 MG PO; +METRONIDAZOLE500 M4 PO; +NEURONTIN 300M300 M2 PO
[2021-09-19 19:16] VITALS: BP 114/71
[2021-09-19] MEDS ORDERED: HYDROCODON-ACE1 EAC7 PO (20:36)
[2021-09-19 21:09] LABS: HEMATOCRIT 26.3 % (42.0-52.0); HEMOGLOBIN 8.8 gm/dL (14.0-18.0); MCH 32.4 pg (26.0-34.0); MCHC 33.6 g/dL (28.0-37.0); MCV 96.3 fL (80.0-100.0); RBC 2.73 mil/uL (4.50-6.00); RDW 15.2 % (10.5-14.5); WBC 9.5 thou/uL (4.0-11.0)
[2021-09-19 21:33] LABS: ALBUMIN 3.5 g/dL (3.4-5.0); CALCIUM 7.9 mg/dL (8.5-10.1); CREATININE 9.6 mg/dL (0.7-1.3); TOTAL BILIRUBIN 0.4 mg/dL (0.2-1.0); TOTAL PROTEIN 7.3 g/dL (6.4-8.2)
[2021-09-19 21:36] LABS: POTASSIUM 6.6 mmol/L (3.5-5.1)
--- NOTE | 2021-09-20 00:20 | NUR ---
ER PROVIDER PLACED PERIPHERAL IV IN LEFT UPPER ARM WITH USE OF ULTRASOUND.
--- NOTE | 2021-09-20 00:27 | NUR ---
REPORT CALLED TO RN ON 4TH FLOOR. ALL BELONGINGS SENT WITH PT. UNABLE TO OBTAIN UA YET PT HAS BEEN UNABLE TO VOID.
[2021-09-20 00:30] VITALS: BP 129/75
[2021-09-20] MEDS ORDERED: ACID CONTROLLER20 MG PO (00:41)
[2021-09-20 04:15] LABS: HEMATOCRIT 24.4 % (42.0-52.0); HEMOGLOBIN 8.5 gm/dL (14.0-18.0); MCH 33.3 pg (26.0-34.0); MCHC 34.8 g/dL (28.0-37.0); MCV 95.8 fL (80.0-100.0); RBC 2.55 mil/uL (4.50-6.00); RDW 14.9 % (10.5-14.5); WBC 7.3 thou/uL (4.0-11.0)
[2021-09-20 05:53] VITALS: BP 145/77
[2021-09-20 07:35] VITALS: BP 134/83
--- NOTE | 2021-09-20 07:43 | NUR ---
PT WAS ADMITTED TO THE UNIT FROM THE ER IN A STABLE CONDITION.PT ALERT AND ORIENTED WITH FORGETFULNESS.PT WITH HX OF FALL,UNSTABLE ON HIS FEET. LACERATION NOTED TO HIS LL ELBOW.BRUISING TO HIS ARMS.SCRAPES TO HIS L KNEE.DIALYSIS CATH TO HIS L CHEST.PT NOT COMPLIANT WITH FALL PRECAUTIONS.REPORT GIVEN TO AM NURSE TO MOVE PT CLOSER TO THE NURSES STATION.PT DIALYSED IMMEDIATELY HE GOT TO THE FLOOR,0.5L OUT.PT RESTING ON HIS BED AT THIS TIME.UA NOT OBTAINED,REPORT TO AM NURSE TO FOLLOW UP ON.
--- NOTE | 2021-09-20 08:02 | EKG ---
[address] [place] [address] ELECTROCARDIOGRAM REPORT Name: CHEPEJENA Rahel Room #: 441-P ADM IN M.R.#: [id number] Admission: 09/19/21 Attend Phys: Patricia Hernandez MD Discharge: Date of : 59 Report #: [id number] [facility] ED Test Date: 2021-09-19 Test Time: 19:21:01 Pat Name: JENA MO Department: Room: [facility] Gender: M Call Out Clerk: REKHA : 1955 Requested By: Jessie Garza Order Number: [id number] : Graeme Lawrence Measurements Intervals [place] Rate: 74 P: 47 LA: 219 QRS: 28 QRSD: 104 T: 56 QT: 375 QTc: 416 Interpretive Statements Sinus rhythm Compared to ECG 09/13/2021 10:43:19 ST (T wave) deviation now present Electronically Signed On 09-20-2021 8:02:19 BEHAVIOR CLINICIAN by Graeme Lawrence [email or web address] <ELECTRONICALLY SIGNED> By: Graeme Lawrence MD, [facility] 09/20/21801 20 20 Graeme Lawrence MD, FACC /EPI
[2021-09-20 08:50] LABS: CREATININE 6.1 mg/dL (0.7-1.3); POTASSIUM 4.3 mmol/L (3.5-5.1)
--- NOTE | 2021-09-20 10:14 | NUR ---
WOUND CONSULT; THE LEFT ELBOW AND LEFT GREAT TOE WOUND ARE RELATED TO A FALL AND JASSI ON THE GROUND PER PATIENT. THE LEFT ELBOW MEASURES 1.5 X 1.5 X 0.3. THE LEFT GREAT TOE IS 1 X 1 X 0.1. THERE ARE NO VISUAL S/S OF INFECTION. RECOMMENDATIONS: -Q2H TURNING -LEFT ELBOW AQUACEL AG, COVER WITH A BORDER FOAM, CHANGE DAILY -LEFT GREAT TOE, APPLY XEROFORM, WRAP WITH 1" ROLLED GAUZE, CHANGE DAILY DISCUSSSED WITH RN
[2021-09-20 15:14] VITALS: BP 111/69
--- NOTE | 2021-09-20 17:12 | NUR ---
met with patient who resides at [facility]. He has no steps to enter process. Patient hx of left [facility]. Patient dializes at [facility] [address]. Patient reports he has cane and walker for use at home. Discussed post acute care he has the list. Reviewed HH care he reports nurses at [facility] check on him. Reviewed HH therapy as well. Therapy evals in process. Patient reports cont swelling in arms. Updated Rn.
--- NOTE | 2021-09-20 18:56 | NUR ---
PT A&OX4. PT IS FORGETFUL. PT IS IRRITABLE AND KEEPS STATING HE IS GOING HOME AND NEEDS HIS ANTIBIOTICS. PT DEMANDING HE RECEIVE IV ABT. PGD DR CASTILLO AND DR. CASTILLO STATES HE WILL START IV ABT. PT C/O PAIN THROUGHOUT DAY. WILL CONTNIUE TO MONITOR
[2021-09-20 19:57] VITALS: BP 142/51
[2021-09-25 07:09] LABS: HEPATITIS B SURFACE AG Negative (Negative)
== END 2021-09-20 20:37 | disposition left against medical advice (07) | DRG 640 ==
LOC: ER 19:13 → EROBS 23:36 → 4S 23:36
PROVIDERS: Internal Medicine Nephrology; Nurse Practitioner Family; Student in an Organized Health Care Education/Training Program; ADMIT Hospitalist; ATTEND Hospitalist
PROC: 5A1D70Z Performance of Urinary Filtration, Intermittent, Less than 6 Hours Per Day (ICD-10-PCS; principal; 2021-09-19)
DX: E87.5 Hyperkalemia (principal); N18.6 End stage renal disease; I69.354 Hemiplegia and hemiparesis following cerebral infarction affecting left non-dominant side; I12.0 Hypertensive chronic kidney disease with stage 5 chronic kidney disease or end stage renal disease; F32.9 Major depressive disorder, single episode, unspecified; M54.9 Dorsalgia, unspecified; F41.9 Anxiety disorder, unspecified; F12.90 Cannabis use, unspecified, uncomplicated; Z53.29 Procedure and treatment not carried out because of patient's decision for other reasons; F17.210 Nicotine dependence, cigarettes, uncomplicated; M43.8X4 Other specified deforming dorsopathies, thoracic region; R53.81 Other malaise; Z20.822 Contact with and (suspected) exposure to COVID-19; S51.002A Unspecified open wound of left elbow, initial encounter; D64.9 Anemia, unspecified; G89.4 Chronic pain syndrome; W18.39XA Other fall on same level, initial encounter; Z88.8 Allergy status to other drugs, medicaments and biological substances; Y93.89 Activity, other specified; Y92.89 Other specified places as the place of occurrence of the external cause; Y99.8 Other external cause status; Z86.19 Personal history of other infectious and parasitic diseases
CPT/HCPCS: 32100

== ENCOUNTER 2021-09-22 09:46 | Inpatient (IN) | payer OTHER ==
[~2021-09-22] VITALS: Ht 180.3 cm; Wt 86.2 kg
--- NOTE | ~2021-09-22 | EMS ---
[address] [address] EMS Patient Care Report Name: JENA MO Room #: 443-P [facility] IN M.R.#: [id number] Admission: 09/22/21 Attend Phys: Juanpablo Gibson MD Discharge: 09/22/21 Date of : 59 Report #: [id number] THIS REPORT FOR: //name// Report Transmitted: 09/24/2021 10:33 EMS Care Summary [place], [place]/[facility] Incident [id number] @ 09/22/2021 09:14 Incident Location [address] [facility] [address] Patient JENA MO Male, 66 Years 1955 Patient Address [id number] [place] [address] Patient History Chronic Obstructive Pulmonary Disease (COPD),Hypertension (HTN),Kidney/Renal Failure,Seizures,Stroke/CVA,Parkinson's Disease,Neuropathy,Dialysis,Back Pain (Chronic), Patient Allergies Haldol, Patient Medications Atorvastatin, Buspirone, Baclofen, Albuterol, Lisinopril, Clonidine, Aspirin, Gabapentin, Amlodipine, Alprazolam, Metoprolol, Chief Complaint L SIDE CHEST PAIN ON MOVEMENT Disposition Transported No Lights/[place] Dispatch Reason Chest Pain (Non-Traumatic) Transported To [address] [address] EMS Patient Care Report Name: JENA MO Room #: 443-P [facility] IN [facility]#: [id number] Admission: 09/22/21 Attend Phys: Juanpablo Gibson MD Discharge: 09/22/21 Date of : 59 Report #: [id number] PT FOUND SITTING IN CHAIR IN [facility]. PT STATES THAT HE IS HAVING WORSEING PAIN AND SWELLING IN HIS L ELBOW AND PAIN IN THE L SIDE OF HIS CHEST WHEN HE MOVES OR TAKES A DEEP BREATH IN. PT WAS SEEN BY EMS 3 DAYS AGO FOR THE SAME PROBLEM AND BROUGHT TO ER. PT STATES THAT AT ER THEY GAVE HIM PAIN MEDICATION AND SENT HIM HOME. PT STATES HE WOULD LIKE TO BE SEEN AT THE ER AGAIN. PT DENIES ANY NEW FALLS. Initial Vitals @09:36P: 80,R: 16,BP: 100/60,Pain: 6/10,GCS: 15,SpO2: 99,Revised Trauma: 12, @09:41P: 71,R: 16,BP: 113/67,GCS: 15,SpO2: 99,Revised Trauma: 12, Assessments @09:33MENTAL:No Abnormalities,SKIN:No Abnormalities,HEENT:Head/Face: No Abnormalities,LUNG SOUNDS:General: No Abnormalities,ABDOMEN:General: No Abnormalities,PELVIS//GI:No Abnormalities,EXTREMITIES:Right Arm: TORSTEN,Right Arm: MARIA VICTORIA,PULSE:NEURO:No Abnormalities, Impression Chest pain on breathing Procedures @09:33 ALS Assessment Response: UnchangedSucceeded @09:34 Stretcher Response: Unchanged Timeline 09:13,Call Received :,Dispatch Notified 09:14,Dispatched 09:15,En Route 09:31,On Scene 09:33,At Patient 09:33,ALS Assessment,Response: UnchangedSucceeded, 09:34,Stretcher,Response: Unchanged 09:36,BP: 100/60 M,PULSE: 80,RR: 16 R,SPO2: 99 Ox,ETCO2: ,BG: ,PAIN: 6,GCS: 15, 09:37,Depart Scene 09:41,BP: 113/67 M,PULSE: 71,RR: 16 R,SPO2: 99 Ox,ETCO2: ,BG: ,PAIN: ,GCS: 15, 09:44,At Destination 09:50,Call Closed Disclaimer v1.1 Copyright 2021 [email or web address] This EMS Care Summary contains data elements from the applicable legal record (which may be displayed differently). It is designed to provide pertinent information for the following purposes: continuity of care, clinical quality, and state data reporting. The complete legal record is [place] [address] EMS Patient Care Report Name: JENA MO Room #: 443-P [facility] IN M.R.#: [id number] Admission: 09/22/21 Attend Phys: Juanpablo Gibson MD Discharge: 09/22/21 Date of : 59 Report #: [id number] and administrators of the receiving hospital in [email or web address]'s Patient Tracker. All data is provided "as is."
[~2021-09-22 09:46] MED LIST changes: +ACID CONTROLLER20 MG PO; +HYDROCODON-ACE1 EAC7 PO
[2021-09-22 09:48] VITALS: BP 150/49
[2021-09-22 11:02] LABS: ABSOLUTE NEUTROPHILS 5.9 thou/uL (1.4-8.2); BASOPHILS 0.8 % (0.0-2.0); HEMOGLOBIN 7.3 gm/dL (14.0-18.0); LYMPHOCYTES 10.7 % (24.0-44.0); MCH 32.3 pg (26.0-34.0); MCHC 33.2 g/dL (28.0-37.0); MCV 97.3 fL (80.0-100.0); MONOCYTES 8.6 % (1.0-8.0); PLATELET COUNT 191 thou/uL (150-400); POLYS 75.9 % (36.0-66.0); RBC 2.26 mil/uL (4.50-6.00); WBC 7.8 thou/uL (4.0-11.0)
[2021-09-22 11:18] LABS: ALBUMIN 3.1 g/dL (3.4-5.0); CALCIUM 8.2 mg/dL (8.5-10.1); CREATININE 5.6 mg/dL (0.7-1.3); POTASSIUM 3.6 mmol/L (3.5-5.1); TOTAL BILIRUBIN 0.3 mg/dL (0.2-1.0); TOTAL PROTEIN 6.5 g/dL (6.4-8.2)
[2021-09-22 11:23] LABS: INR 1.16; PROTIME 12.6 Seconds (10.5-12.1)
[2021-09-22 14:14] VITALS: BP 150/49
[2021-09-22 15:02] VITALS: BP 150/49
[2021-09-22 15:49] VITALS: BP 140/68
--- NOTE | 2021-09-22 19:33 | NUR ---
PT BECAME AGGITATED EARLY IN THE SHIFT. PT REPORTS BEING IN PAIN AND WANTING MORE MEDS. MILLY RN EXPLAINED THAT THE PATIENT RECIEVED PAIN MEDS ABOUT AN AND A HALF AGO. PT BECAME VERBALLY AGRESSIVE AND STATED HE WAS LEAVING. PT EDUCATED ON RISKD OF LEAVING AGAINST MEDICAL ADVICE. LILIANE MERAZ NOTIFIED OF PATIENT REQUEST. IV REMOVED, PT SIGNED AMA PAPERWORK AT 1931
--- NOTE | 2021-09-23 07:51 | EKG ---
[address] [address] ELECTROCARDIOGRAM REPORT Name: JENA MO Room #: 443-P [facility] IN .R.#: [id number] Admission: 09/22/21 Attend Phys: Juanpablo Gibson MD Discharge: 09/22/21 Date of : 59 Report #: [id number] [facility] ED Test Date: 2021-09-22 Test Time: 11:03:56 Pat Name: JENA MO Department: Room: 44 Gender: M Conference Planning Manager: mik : 1955 Requested By: Joaquim Sandra Order Number: [id number] MD: Graeme Lawrence Measurements Intervals [place]y Rate: 65 P: 40 VA: 199 QRS: 41 QRSD: 107 T: 58 QT: 417 QTc: 434 Interpretive Statements Sinus rhythm Compared to ECG 09/19/2021 19:21:01 No significant changes Electronically Signed On 09-23-2021 7:51:12 TABLE TOP TILE SETTER by Graeme Lawrence [email or web address] <ELECTRONICALLY SIGNED> By: Graeme Lawrence MD, [facility] 09/23/21 0751 1103 02 Graeme Lawrence MD, FACC /EPI
[2021-09-23] MEDS ORDERED: FLEXERIL PO (20:31)
[2021-09-23] MEDS ORDERED: NAPROSYN500 MG PO (20:31)
== END 2021-09-22 20:00 | disposition left against medical advice (07) | DRG 602 ==
LOC: ER 09:46 → EROBS 14:15 → 4S 15:55
PROVIDERS: Emergency Medicine; ADMIT Hospitalist; ATTEND Hospitalist
DX: L03.114 Cellulitis of left upper limb (principal); N18.6 End stage renal disease; E87.1 Hypo-osmolality and hyponatremia; I69.354 Hemiplegia and hemiparesis following cerebral infarction affecting left non-dominant side; F32.9 Major depressive disorder, single episode, unspecified; F41.9 Anxiety disorder, unspecified; G89.29 Other chronic pain; M54.9 Dorsalgia, unspecified; D64.9 Anemia, unspecified; F17.210 Nicotine dependence, cigarettes, uncomplicated; F12.90 Cannabis use, unspecified, uncomplicated; F19.90 Other psychoactive substance use, unspecified, uncomplicated; L98.499 Non-pressure chronic ulcer of skin of other sites with unspecified severity; Z53.29 Procedure and treatment not carried out because of patient's decision for other reasons; Z20.822 Contact with and (suspected) exposure to COVID-19; Z86.19 Personal history of other infectious and parasitic diseases; Z88.8 Allergy status to other drugs, medicaments and biological substances; Y93.89 Activity, other specified; S50.859A Superficial foreign body of unspecified forearm, initial encounter
CPT/HCPCS: 10102

== ENCOUNTER 2021-09-23 19:49 | Emergency (ER) | payer OTHER ==
[~2021-09-23] VITALS: Ht 180.3 cm; Wt 86.2 kg
[2021-09-23] MEDS ORDERED: NAPROSYN500 MG PO (20:31)
[2021-09-23] MEDS ORDERED: FLEXERIL PO (20:31)
[2021-09-23 20:52] VITALS: BP 101/57
== END 2021-09-23 22:40 | disposition home or self-care (01) ==
LOC: ER 19:49
DX: M25.512 Pain in left shoulder (principal); F32.9 Major depressive disorder, single episode, unspecified; F41.9 Anxiety disorder, unspecified; Z79.899 Other long term (current) drug therapy; Z88.8 Allergy status to other drugs, medicaments and biological substances; Z87.891 Personal history of nicotine dependence

== ENCOUNTER 2021-09-29 11:48 | Inpatient (IN) | payer OTHER ==
[~2021-09-29] VITALS: Ht 180.3 cm; Wt 94.9 kg
[2021-09-29 11:48] VITALS: BP 132/72
--- NOTE | 2021-09-29 11:59 | NUR ---
THE SISTER OF THE PT STATED IF THE PT IS ADMITTED SHE WOULD PREFER THE PT DOES NOT RECEIVE ANY NARCOTICS.
[2021-09-29 12:27] LABS: CALCIUM 8.3 mg/dL (8.5-10.1); POTASSIUM 4.5 mmol/L (3.5-5.1)
[2021-09-29 12:38] LABS: ABSOLUTE NEUTROPHILS 5.9 thou/uL (1.4-8.2); EOSINOPHILS 3.2 % (0.0-3.0); HEMATOCRIT 23.3 % (42.0-52.0); HEMOGLOBIN 7.9 gm/dL (14.0-18.0); LYMPHOCYTES 8.9 % (24.0-44.0); MCH 32.9 pg (26.0-34.0); MCHC 33.8 g/dL (28.0-37.0); MCV 97.4 fL (80.0-100.0); MONOCYTES 9.2 % (1.0-8.0); PLATELET COUNT 308 thou/uL (150-400); POLYS 77.7 % (36.0-66.0); RDW 16.6 % (10.5-14.5); WBC 7.6 thou/uL (4.0-11.0)
[2021-09-29 12:51] LABS: ALBUMIN 3.8 g/dL (3.4-5.0); DIRECT BILIRUBIN 0.2 mg/dL (<0.1-0.2); TOTAL BILIRUBIN 1.1 mg/dL (0.2-1.0); TOTAL PROTEIN 8.2 g/dL (6.4-8.2)
[2021-09-29 14:38] VITALS: BP 114/59
[2021-09-29 16:32] VITALS: BP 139/76
[2021-09-29 20:46] VITALS: BP 129/73
--- NOTE | 2021-09-30 03:13 | NUR ---
Pt has been anxious, asking for different things. He is however coopeartive and appreciative. advised to elevate left arm on pillow.Denies any nausea or vomiting.Afebrile.
[2021-09-30 06:04] LABS: ABSOLUTE NEUTROPHILS 5.5 thou/uL (1.4-8.2); BASOPHILS 0.7 % (0.0-2.0); EOSINOPHILS 4.6 % (0.0-3.0); HEMATOCRIT 20.8 % (42.0-52.0); HEMOGLOBIN 7.2 gm/dL (14.0-18.0); LYMPHOCYTES 10.7 % (24.0-44.0); MCHC 34.3 g/dL (28.0-37.0); MCV 96.2 fL (80.0-100.0); MONOCYTES 9.8 % (1.0-8.0); PLATELET COUNT 311 thou/uL (150-400); POLYS 74.2 % (36.0-66.0); RBC 2.17 mil/uL (4.50-6.00); RDW 16.4 % (10.5-14.5); WBC 7.4 thou/uL (4.0-11.0)
[2021-09-30 06:11] LABS: ALBUMIN 3.1 g/dL (3.4-5.0); CREATININE 6.6 mg/dL (0.7-1.3); MAGNESIUM 2.3 mg/dL (1.8-2.4); PHOSPHORUS 5.3 mg/dL (2.5-4.9); POTASSIUM 4.8 mmol/L (3.5-5.1); TOTAL BILIRUBIN 0.9 mg/dL (0.2-1.0); TOTAL PROTEIN 7.2 g/dL (6.4-8.2)
[2021-09-30 07:04] LABS: FOLIC ACID 9.5 ng/mL (8.6-58.9)
[2021-09-30 07:54] VITALS: BP 154/94
[2021-09-30 08:39] VITALS: BP 154/94
--- NOTE | 2021-09-30 10:14 | NUR ---
ORDERS FOR EVAL AND TREAT. OBSERVED Pt GET OUT OF BED, STAND AND AMBULATE IN HIS ROOM WITHOUT DIFFICULTY. SPOKE WITH Pt WHO STATES HE IS JUST WAITING FOR THE DOCTOR. STATES HE WOULD FEELS SAFE FOR HOME WHEN THEY DISCHARGE HIM. Pt DECLINING A FORMAL P.T. EVAL BUT APPEARS SAFE FOR HOME WHEN MEDICALLY CLEAR
--- NOTE | 2021-09-30 11:51 | NUR ---
A/O X 4. ROOM AIR. AD JANETH. LEFT CHEST TESSO, RIGHT UPPER ARM PIV INFILTRATED, IV TEAM CALLED, DR. BELL MADE AWARE OF NO IV SITE, PUT IN IV TEAM PIV OR PICC LINE. HAVENT HEARD FROM IV TEAM YET. PATIENT VERY ANXIOUS KEEPS COMING TO DESK, NO LONGER NPO RENAL DIET NOW. LEFT ARM/ELBOW/HAND 2+ PITTING EDEMA. MADE AWARE OF PATIENT STATING THAT PAIN MED NORCO DOESNT HELP HIM, PRN MEDS KEPT THE SAME. DIALYSIS TU/THR/SAT. ONE TIME OXYCODONE IR WILL BE GIVEN.
[2021-10-01 14:07] LABS: GLOBULIN TOTAL 2.9 g/dL (2.2-3.9); M-SPIKE Not Observed g/dL (Not Observed)
== END 2021-09-30 14:55 | disposition left against medical advice (07) | DRG 602 ==
LOC: ER 11:48 → EROBS 13:33 → 4S 13:33
PROVIDERS: Emergency Medicine; ADMIT Internal Medicine; ATTEND Internal Medicine
DX: L03.114 Cellulitis of left upper limb (principal); N18.6 End stage renal disease; I69.354 Hemiplegia and hemiparesis following cerebral infarction affecting left non-dominant side; I12.0 Hypertensive chronic kidney disease with stage 5 chronic kidney disease or end stage renal disease; S51.842A Puncture wound with foreign body of left forearm, initial encounter; Z20.822 Contact with and (suspected) exposure to COVID-19; F32.9 Major depressive disorder, single episode, unspecified; F41.9 Anxiety disorder, unspecified; M54.9 Dorsalgia, unspecified; F12.90 Cannabis use, unspecified, uncomplicated; F17.210 Nicotine dependence, cigarettes, uncomplicated; D63.8 Anemia in other chronic diseases classified elsewhere; B19.20 Unspecified viral hepatitis C without hepatic coma; Z53.29 Procedure and treatment not carried out because of patient's decision for other reasons; G89.4 Chronic pain syndrome; W18.39XA Other fall on same level, initial encounter; Z99.2 Dependence on renal dialysis; Z86.19 Personal history of other infectious and parasitic diseases; Z88.8 Allergy status to other drugs, medicaments and biological substances; Z86.16 Personal history of COVID-19; Y93.89 Activity, other specified; Y92.89 Other specified places as the place of occurrence of the external cause; Y99.8 Other external cause status
CPT/HCPCS: 10195

== ENCOUNTER 2021-09-30 14:56 | Emergency (ER) | payer OTHER | END 2021-09-30 15:54 | disposition left against medical advice (07) | LOC: ER 14:56 | DX: M79.89 Other specified soft tissue disorders (principal); M79.602 Pain in left arm; Z53.21 Procedure and treatment not carried out due to patient leaving prior to being seen by health care provider; Z88.8 Allergy status to other drugs, medicaments and biological substances ==

== ENCOUNTER 2021-09-30 20:10 | Emergency (ER) | payer OTHER ==
[~2021-09-30] VITALS: Ht 180.3 cm; Wt 86.2 kg
--- NOTE | ~2021-09-30 | EMS ---
[address] [address] EMS Patient Care Report Name: JENA OM Room #: DEP DEMARCUS Bergman#: [id number] Admission: 09/30/21 Attend Phys: Discharge: 09/30/21 Date of : 59 Report #: [id number] THIS REPORT FOR: //name// Report Transmitted: 10/03/2021 12:46 EMS Care Summary [place], [place]/[facility] Incident [id number] @ 09/30/2021 19:29 Incident Location [address] Patient JENA [place] Male, 66 Years 1955 Patient Address [id number] [place] [address] [address] [place] [address] Patient History Chronic Obstructive Pulmonary Disease (COPD),Hypertension (HTN),Kidney/Renal Failure,Seizures,Stroke/CVA,Parkinson's Disease,Neuropathy,Dialysis,Back Pain (Chronic), Patient Allergies Haldol, Patient Medications Amlodipine, Gabapentin, Metoprolol, Lisinopril, Clonidine, Baclofen, Alprazolam, Atorvastatin, Buspirone, Albuterol, Aspirin, Chief Complaint Chest Pain Disposition Transported No Lights/[place] Dispatch Reason Chest Pain (Non-Traumatic) Transported To [address] [address] EMS Patient Care Report Name: JENA MO Room #: DEP [facility]#: [id number] Admission: 09/30/21 Attend Phys: Discharge: 09/30/21 Date of : 59 Report #: [id number] Staff stated that Pt has been to the ER multiple times today and he would leave and walk outside to smoke and not come back into ER. Staff stated Pt is with a severe drug problem and is supposed to have his left arm surgery place a stint in his arm to drain fluid off of it. Pt stated that he could not just sit around and wait for the Dr to finish his work and had to leave but would call 911 to return to the Hospital. Pt stated now he is having chest pain that is mid chest and no radiation noted and rated his pain at a 6/10 that would come and go. Pt is a GCS 15 with no other complaints noted to EMS Pt found sitting in his room at [facility] with pumper crew, Pt is with a odor of ETOH on Pt breath and body and Pt has a crack pipe in his room and well. Pt is now C/O chest pain mid chest with no radiation noted by Pt and Pt rated his pain at a 6/10. Pt 12 lead showed no elevation or depression noted on eval and no other ectopy noted by EMS as well. Pt was upset due to EMS wanting to place a IV lock on Pt and to give him asprines and Nitro for his pain. Pt stated he does not want anything but just wanted to go to the hospital to be evaluated. Medic attempted to explain to Pt the importance of early treatment for chest pain and treatment too. Pt still refused and stated he wanted to let the DR at [facility] ER give him the Medication not EMS. Pt is a GCS 15 with no other complaints noted and no changes noted on EKG during transport to ER. Pt received by RN at triage. Initial Vitals @19:50P: 96,R: 20,BP: 186/102,Pain: 0/10,GCS: 15,SpO2: 98,Revised Trauma: 12, @19:42P: 86,R: 22,BP: 193/110,Pain: 6/10,GCS: 15,SpO2: 97,Revised Trauma: 12, @19:44P: 92,R: 22,Pain: 6/10,GCS: 15,SpO2: 98, @19:42P: 98,R: 22,BP: 188/97,Pain: 6/10,GCS: 15,SpO2: 98,Revised Trauma: 12, Assessments @19:39MENTAL:Person Oriented,Event Oriented,Time Oriented,Place Oriented,SKIN:HEENT:Head/Face: No Abnormalities,Neck/Airway: No Abnormalities,LUNG SOUNDS:General: No Abnormalities,ABDOMEN:General: No Abnormalities,PELVIS//GI:No Abnormalities,EXTREMITIES:Capillary Refill: Left Upper: < 2 Sec,Left Arm: No Abnormalities,Right Arm: No Abnormalities,Left Leg: No Abnormalities,Right Leg: No Abnormalities,PULSE:Radial: 2+ Normal,NEURO:No Abnormalities,@20:01MENTAL:Place Oriented,Person Oriented,Event Oriented,Time Oriented,SKIN:HEENT:Head/Face: No Abnormalities,Neck/Airway: No Abnormalities,LUNG SOUNDS:General: No Abnormalities,ABDOMEN:General: No Abnormalities,PELVIS//GI:No Abnormalities,EXTREMITIES:Capillary Refill: Left Upper: < 2 Sec,Left Arm: No Abnormalities,Right Arm: No Abnormalities,Left Leg: No Abnormalities,Right Leg: No Abnormalities,PULSE:Radial: 2+ Normal,NEURO:No Abnormalities, Impression Chest Pain / Discomfort [facility] [address] [place] [address] EMS Patient Care Report Name: JENA MO Room #: DEP [facility]#: [id number] Admission: 09/30/21 Attend Phys: Discharge: 09/30/21 Date of : 59 Report #: [id number] Procedures @19:44 12-Lead ECG Response: UnchangedSucceeded @19:39 ALS Assessment Response: UnchangedSucceeded @PTAOxygen FlowRate: 4 Device: Nasal Cannula (NC) Response: UnchangedSucceeded @19:42 3-Lead ECG Response: UnchangedSucceeded Timeline [employer],Oxygen FlowRate: 4 Device: Nasal Cannula (NC) Response: UnchangedSucceeded, 19:27,Call Received 19:27,Dispatch Notified 19:29,Dispatched 19:31,En Route 19:36,On Scene 19:39,At Patient 19:39,ALS Assessment,Response: UnchangedSucceeded, 19:42,3-Lead ECG,Response: UnchangedSucceeded, 19:42,BP: 188/97 M,PULSE: 98,RR: 22 R,SPO2: 98 Ox,ETCO2: ,BG: ,PAIN: 6,GCS: 15, 19:42,BP: 193/110 M,PULSE: 86,RR: 22 R,SPO2: 97 Ox,ETCO2: ,BG: ,PAIN: 6,GCS: 15, 19:44,12-Lead ECG,Response: UnchangedSucceeded, 19:44,BP: / M,PULSE: 92,RR: 22 R,SPO2: 98 Ox,ETCO2: ,BG: ,PAIN: 6,GCS: 15, 19:50,BP: 186/102 M,PULSE: 96,RR: 20 R,SPO2: 98 Ox,ETCO2: ,BG: ,PAIN: 0,GCS: 15, 19:57,Depart Scene 20:02,At Destination 20:21,Call Closed Disclaimer v1.1 Copyright 2021 [employer] This EMS Care Summary contains data elements from the applicable legal record (which may be displayed differently). It is designed to provide pertinent information for the following purposes: continuity of care, clinical quality, and state data reporting. The complete legal record is available to ED staff and administrators of the receiving hospital in [employer]'s Patient Tracker. All data is provided "as is."
[2021-09-30 22:13] LABS: HEMOGLOBIN 7.4 gm/dL (14.0-18.0)
[2021-09-30 22:14] LABS: ABSOLUTE NEUTROPHILS 6.7 thou/uL (1.4-8.2); BASOPHILS 1.1 % (0.0-2.0); EOSINOPHILS 4.4 % (0.0-3.0); HEMATOCRIT 23.2 % (42.0-52.0); LYMPHOCYTES 9.9 % (24.0-44.0); MCH 32.5 pg (26.0-34.0); PLATELET COUNT 349 thou/uL (150-400); POLYS 74.6 % (36.0-66.0); RBC 2.28 mil/uL (4.50-6.00); RDW 17.4 % (10.5-14.5)
[2021-09-30 22:18] LABS: MCV 101.4 fL (80.0-100.0)
[2021-09-30 22:23] LABS: ANION GAP 14 mmol/L (7-16); BUN 40 mg/dL (7-18); CALCIUM 8.2 mg/dL (8.5-10.1); CHLORIDE 95 mmol/L (98-107); CO2 22 mmol/L (21-32); CREATININE 7.3 mg/dL (0.7-1.3); GLUCOSE 134 mg/dL (74-106); POTASSIUM 4.7 mmol/L (3.5-5.1); SODIUM 131 mmol/L (136-145)
[2021-09-30 22:33] LABS: ALBUMIN 3.4 g/dL (3.4-5.0); SALICYLATE < 2.8 mg/dL (2.8-20.0); SGOT 17 U/L (15-37); SGPT 13 U/L (16-63); TOTAL BILIRUBIN 0.9 mg/dL (0.2-1.0); TOTAL PROTEIN 7.2 g/dL (6.4-8.2)
[2021-09-30 23:19] VITALS: BP 147/77
--- NOTE | 2021-10-01 10:03 | EKG ---
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 : 1955 Requested By: Messi Pugh Order Number: [id number] MD: Roman Interiano Measurements Intervals [place] Rate: 93 P: 55 IA: 172 QRS: 35 QRSD: 110 T: 33 QT: 357 QTc: 445 Interpretive Statements Sinus rhythm Normal tracing Compared to ECG 09/22/2021 11:03:56 No significant changes Electronically Signed On 10-01-2021 7:51:43 IT RISK [employer] 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
== END 2021-09-30 23:19 | disposition home or self-care (01) ==
LOC: ER 20:10
PROVIDERS: Nurse Practitioner
DX: L03.114 Cellulitis of left upper limb (principal); Z20.822 Contact with and (suspected) exposure to COVID-19; G20 Parkinson's disease; B19.20 Unspecified viral hepatitis C without hepatic coma; K21.9 Gastro-esophageal reflux disease without esophagitis; F32.9 Major depressive disorder, single episode, unspecified; F41.9 Anxiety disorder, unspecified; N18.6 End stage renal disease; F12.90 Cannabis use, unspecified, uncomplicated; Z98.890 Other specified postprocedural states; Z86.73 Personal history of transient ischemic attack (TIA), and cerebral infarction without residual deficits; Z99.2 Dependence on renal dialysis; Z79.51 Long term (current) use of inhaled steroids; Z79.891 Long term (current) use of opiate analgesic; Z79.899 Other long term (current) drug therapy; Z88.8 Allergy status to other drugs, medicaments and biological substances; Z87.891 Personal history of nicotine dependence

== ENCOUNTER 2021-10-07 15:33 | Emergency (ER) | payer OTHER ==
[~2021-10-07] VITALS: Ht 180.3 cm; Wt 86.2 kg
[2021-10-07 15:39] VITALS: BP 180/105
[2021-10-09] MEDS ORDERED: CEPHALEXIN500 MG PO (06:22)
[2021-10-09] MEDS ORDERED: REQUIP 0.25 M0.25 M1 PO (06:23)
[2021-10-09] MEDS ORDERED: LISINOPRIL20 MG PO (06:23)
[2021-10-09] MEDS ORDERED: LOW DOSE ASPIRI81 M1 PO (06:23)
[2021-10-09] MEDS ORDERED: CREON DR 6,0001 EACH PO (06:24)
[2021-10-09] MEDS ORDERED: TRAZODONE HCL50 MG PO (06:24)
[2021-10-09] MEDS ORDERED: NORCO 10-325 T1 EACH PO (06:25)
== END 2021-10-07 17:44 | disposition home or self-care (01) ==
LOC: ER 15:33
DX: M79.5 Residual foreign body in soft tissue (principal); G20 Parkinson's disease; B19.20 Unspecified viral hepatitis C without hepatic coma; F32.9 Major depressive disorder, single episode, unspecified; F41.9 Anxiety disorder, unspecified; N18.6 End stage renal disease; F12.90 Cannabis use, unspecified, uncomplicated; Z98.890 Other specified postprocedural states; Z86.73 Personal history of transient ischemic attack (TIA), and cerebral infarction without residual deficits; Z99.2 Dependence on renal dialysis; Z79.51 Long term (current) use of inhaled steroids; Z79.899 Other long term (current) drug therapy; Z88.8 Allergy status to other drugs, medicaments and biological substances; Z87.891 Personal history of nicotine dependence; W45.8XXA Other foreign body or object entering through skin, initial encounter; Y93.89 Activity, other specified; Y92.89 Other specified places as the place of occurrence of the external cause; Y99.8 Other external cause status

== ENCOUNTER 2021-10-09 06:34 | Observation (INO) | payer OTHER ==
[~2021-10-09] VITALS: Ht 180.3 cm; Wt 88.5 kg
[~2021-10-09 06:34] MED LIST changes: +CREON DR 6,0001 EACH PO; +LISINOPRIL20 MG PO; +LOW DOSE ASPIRI81 M1 PO; +REQUIP 0.25 M0.25 M1 PO; +TRAZODONE HCL50 MG PO
[2021-10-09 09:06] VITALS: BP 148/85
[2021-10-09 14:30] VITALS: BP 168/94
--- NOTE | 2021-10-14 10:06 | PATH ---
[facility] [place] [address] PATHOLOGY RPT PROCEDURE Name: VLAD MO Room #: 434-P [facility] Bethany M.RJimbo#: [id number] Admission: 10/09/21 Date of : 59 Discharge: 10/09/21 Report #: [id number] Path Case #: [id number] [facility] Accession Number: [id number] . 01 Material submitted: . forearm - LEFT FOREARM FOREIGN BODY. Modifiers: left . 02 Diagnosis: Left forearm, foreign body, removal: - Foreign body (silver metallic cylindrical fragment) noted. (ANK:kay; 10/11/2021) MBR 10/11/2021 1355 Local . 02 Electronically signed: . Lina Friedman MD, Pathologist NPI- [id number] . 01 Gross description: . The specimen is received in formalin, labeled "Vlad Mo, foreign body left arm" and consists of a silver metallic cylindrical foreign body (1.3 cm in length x < 0.1 cm in diameter) with one beveled sharp end and one blunt end. No additional soft tissue is received. A photograph is taken. This specimen is for gross examination only. (MEKORYUK; 10/10/2021) DKA/DKA 10/10/2021 1304 Local . 02 Pathologist provided ICD-10: Z03.89 . 02 CPT . 260219 Specimen Comment: A courtesy copy of this report has been sent to [phone], [phone] Specimen Comment: [id number] Specimen Comment: Report sent to / DR TRUJILLO Performed at: [address], [place] [id number] MD Marcos Adrian MD Phone: [phone] Performed at: [address] [id number] MD Lina Friedman MD Phone: [phone]
== END 2021-10-09 18:56 | disposition left against medical advice (07) ==
LOC: OR 06:34 → 4S 13:49 → OR 15:19 → 4S 18:56
PROVIDERS: ADMIT Surgery; ATTEND Surgery
DX: S50.02XA Contusion of left elbow, initial encounter (principal); S40.852A Superficial foreign body of left upper arm, initial encounter; S51.002A Unspecified open wound of left elbow, initial encounter; Z20.822 Contact with and (suspected) exposure to COVID-19; J44.9 Chronic obstructive pulmonary disease, unspecified; I12.0 Hypertensive chronic kidney disease with stage 5 chronic kidney disease or end stage renal disease; N18.6 End stage renal disease; F41.9 Anxiety disorder, unspecified; F32.9 Major depressive disorder, single episode, unspecified; F17.210 Nicotine dependence, cigarettes, uncomplicated; W19.XXXA Unspecified fall, initial encounter; Y93.89 Activity, other specified; Y92.89 Other specified places as the place of occurrence of the external cause
CPT/HCPCS: 50010; 50101; 50386; 50403; 56527; 70005

== ENCOUNTER 2021-10-12 08:00 | Emergency (ER) | payer OTHER ==
[~2021-10-12] VITALS: Ht 180.3 cm; Wt 86.2 kg
[2021-10-12 08:01] VITALS: BP 167/54
== END 2021-10-12 08:24 | disposition home or self-care (01) ==
LOC: ER 08:00
DX: M54.50 Low back pain, unspecified (principal); I12.0 Hypertensive chronic kidney disease with stage 5 chronic kidney disease or end stage renal disease; N18.6 End stage renal disease; G20 Parkinson's disease; J44.9 Chronic obstructive pulmonary disease, unspecified; F41.9 Anxiety disorder, unspecified; F32.9 Major depressive disorder, single episode, unspecified; K21.9 Gastro-esophageal reflux disease without esophagitis; B19.20 Unspecified viral hepatitis C without hepatic coma; Z99.2 Dependence on renal dialysis; Z91.15 Patient's noncompliance with renal dialysis; Z86.73 Personal history of transient ischemic attack (TIA), and cerebral infarction without residual deficits; Z90.89 Acquired absence of other organs; Z98.890 Other specified postprocedural states; Z85.828 Personal history of other malignant neoplasm of skin; Z79.51 Long term (current) use of inhaled steroids; Z79.82 Long term (current) use of aspirin; Z79.891 Long term (current) use of opiate analgesic; Z79.899 Other long term (current) drug therapy; Z88.8 Allergy status to other drugs, medicaments and biological substances; Z87.891 Personal history of nicotine dependence

== ENCOUNTER 2021-10-12 13:55 | Emergency (ER) | payer OTHER ==
[~2021-10-12] VITALS: Ht 182.9 cm; Wt 86.2 kg
[2021-10-12 13:58] VITALS: BP 114/64
== END 2021-10-12 14:53 | disposition home or self-care (01) ==
LOC: ER 13:55
DX: M79.602 Pain in left arm (principal); I13.0 Hypertensive heart and chronic kidney disease with heart failure and stage 1 through stage 4 chronic kidney disease, or unspecified chronic kidney disease; N18.6 End stage renal disease; G20 Parkinson's disease; J44.9 Chronic obstructive pulmonary disease, unspecified; F41.9 Anxiety disorder, unspecified; F32.9 Major depressive disorder, single episode, unspecified; K21.9 Gastro-esophageal reflux disease without esophagitis; B19.20 Unspecified viral hepatitis C without hepatic coma; Z95.1 Presence of aortocoronary bypass graft; Z90.89 Acquired absence of other organs; Z98.890 Other specified postprocedural states; Z99.2 Dependence on renal dialysis; Z79.51 Long term (current) use of inhaled steroids; Z79.82 Long term (current) use of aspirin; Z79.899 Other long term (current) drug therapy; Z88.8 Allergy status to other drugs, medicaments and biological substances; Z87.891 Personal history of nicotine dependence

== ENCOUNTER 2021-10-13 09:15 | Emergency (ER) | payer OTHER ==
[~2021-10-13] VITALS: Ht 180.3 cm; Wt 86.2 kg
[2021-10-13 10:54] VITALS: BP 171/90
== END 2021-10-13 10:54 | disposition home or self-care (01) ==
LOC: ER 09:15
DX: M54.59 Other low back pain (principal); I12.0 Hypertensive chronic kidney disease with stage 5 chronic kidney disease or end stage renal disease; N18.6 End stage renal disease; J44.9 Chronic obstructive pulmonary disease, unspecified; F32.9 Major depressive disorder, single episode, unspecified; F41.9 Anxiety disorder, unspecified; Z98.890 Other specified postprocedural states; Z79.899 Other long term (current) drug therapy; Z88.8 Allergy status to other drugs, medicaments and biological substances; Z87.891 Personal history of nicotine dependence